=== PATIENT | female | born 1935 | race Caucasian/White ===

== ENCOUNTER 2019-02-11 19:01 | Inpatient (IN) | payer MEDICARE, OTHER ==
[~2019-02-11] VITALS: Ht 170.2 cm; Wt 60.0 kg
[~2019-02-11 19:01] MED LIST: AMIT50TA3 PO; AMOX1TAB10 PO; CYCL5TAB PO; ERGO500014 PO; ESOM40CA PO; HYDR28CR43 TOP; LACHYD12 TOP; LANS30CA PO; METF-480 PO; METO25TA4 PO; OMEG1CAP PO; QUET25TA33 PO; ROPI1TAB PO; SENN25TA PO; SERT50TA6 PO; SIN50200 PO; SOLI10TA2 PO
--- NOTE | 2019-02-11 19:50 | STROKE ---
Date/Time of Note Date/Time of Note DATE: 02/11/19 TIME: 19:49 Patient Information General Patient location: emergency Arrival Date Age 83 Gender female Weight 60 kg POC Glucose Glucose Result Bedside Glucose - 72 Hours Test 02/11/19 19:18 Bedside Glucose 114 mg/dL (70-220) Vital Signs Vital Signs Vital Signs Date Temp Pulse Resp B/P (MAP) Pulse Ox O2 O2 Flow FiO2 Time Delivery Rate 02/11/19 Nasal 19:13 Cannula 02/11/19 98.9 93 19 92/54 (67) 100 19:05 Patient History Current Medications Allergies: Coded Allergies: No Known Allergies (Unverified Allergy, Unknown, 04/28/16) History & Physical History of Present Illness 83 F PMH TIA one week ago, baseline mRS 4, PD on Sinemet LKW 1000 PST who stopped talking today. No focal extremity weakness. NCHCT done and read pending. NIH Stroke Scale NIH Stroke Scale [id number] Total Score: [id number] te/Time Recorded DATE: 02/11/19 TIME: 19:49 Submitted By Colin Felix t-PA Imaging Review Date/Time Imaging Reviewed DATE: 02/11/19 TIME: 19:49 t-PA Administration Recommendation: No Weight 60 kg Recommedation submitted by Colin Felix Reason t-PA not Recommended Not in time window Recommendations Recommendation 83 F who "stopped talking" earlier today. concerning for aphasia caused by stroke. Not in tPA window. Not MT candidate due to baseline mRS of 4. Patient has missed many doses of her Sinemet over the last few days. DDX includes aphasia from stroke vs freezing/decompensation from PD in setting of missed doses of Sinemet over last 3 days. - MRI Brain to further rule-out stroke. Frequent neuro checks per protocol with telemetry while MRI Brain pending - If acute stroke on MRI Brain then needs full stroke work-up ( MRA Head/Neck, TTE with bubble, blood cultures, telemetry, EKG, LDL, A1c, SP, PT, OT) and antiplatelet loading as guided by local Neurologist - Strictly administer home Sinemet after passes bedside swallow testing - Consult local Neurology to guide further recs I, Dr Colin Felix, was consulted by the local team caring for this patient to perform an expert, remote TeleNeurology assessment as a workforce consultant only. Accuracy of the Electronic Medical Record info reported to me verbally by the local clinical team, adherence to and execution of my recommendations, order placement, follow-up of STAT imaging reports with on-call local Radiologist, and [facility] on-call if clinical deterioration of the patient is the responsibility of the local team. The local physician team is responsible for the further care of this patient in co ordination with their on-call local Neurologist. Recommendations documented here were directly communicated to the local physician team. COLIN FELIX MD Feb 11, 2019 19:50
[2019-02-11] MEDS ORDERED: NACL 0.9% 3 ML SYG IV SCH (22:30)
[2019-02-11] MEDS ORDERED: ONDANSETRON 4 MG INJ IV PRN (22:30)
[2019-02-11] MEDS ORDERED: ALBUTEROL/IPRATROPIUM (NEB) 3 ML AMP HHN PRN (22:30)
[2019-02-11] MEDS ORDERED: ACETAMINOPHEN 650 MG SUPP PR PRN (22:30)
--- NOTE | 2019-02-11 22:54 | ERD ---
ER Documentation Chief Complaint Chief Complaint bib ra from home for unable to speak HPI The patient is a 83-year-old female, presenting to the ER because she has not been able to speak since 10 AM this morning. She had a TIA and was DC from [place] about 9 days ago. She has been able to ambulate with assistance until this morning when her grandson noted that she is different and unable to speak. She follows simple commands, is unable to provide a history. The history is obtained from the son According to him she is less responsive than normal. She has not been taking her Parkinson disease for the last couple days Past medical history: History of CVA, history of TIA, Parkinson disease, diabetes mellitus, hypertension, dyslipidemia, dementia ROS All systems reviewed and are negative except as per history of present illness. Medications Home Meds Reported Medications Hydrocortisone (Neosporin) 1% - 28 Gm Cream..g., 1 APPLIC TOP DAILY, #1 TUB 04/28/16 Amoxicillin/Potassium Clav (Amox-Clav 875-125 mg Tablet) 875-125 mg Tab, 1 TAB PO BID, #20 TAB 04/28/16 Ammonium Lactate* (Lac-Hydrin* 12% (225gm)) 1 Applic Lotion, 1 APPLIC TOP DAILY, BOTTLE 04/28/16 Cyclobenzaprine Hcl* (Cyclobenzaprine Hcl*) 5 Mg Tablet, 5 MG PO DAILY, #60 TAB 04/28/16 Ropinirole Hcl* (Ropinirole Hcl*) 1 Mg Tablet, 1 MG PO BID, TAB 04/28/16 Metoprolol Tartrate* (Lopressor*) 25 Mg Tablet, 25 MG PO DAILY, #60 TAB 04/28/16 Amitriptyline Hcl* (Amitriptyline Hcl*) 50 Mg Tablet, 50 MG PO QHS, #30 TAB 04/28/16 Solifenacin* (Vesicare*) 10 Mg Tablet, 10 MG PO DAILY, TAB 04/28/16 Esomeprazole Mag Trihydrate (Nexium) 40 Mg Capsule.dr, 40 MG PO DAILY, #30 CAP 04/28/16 Ergocalciferol* (Drisdol* (Vitamin D2)) 50,000 Unit Capsule, 43365 UNIT PO Q7D, CAP 04/28/16 Sennosides (Laxative) 25 Mg Tablet, 25 MG PO DAILY, TAB 10/13/16 [place]-3 Fatty Acids/Fish Oil (OMEGA-3 1,000 MG SOFTGEL) 1 Each Capsule, 1 EACH PO DAILY, CAP 04/28/16 Carbidopa-Levodopa* (Sinemet CR*) 50-200 Mg Tabsr, 1 TAB PO QID, #6 TAB 09/12/14 Metformin* (Glucophage*) 850 Mg Tablet, 850 MG PO BID WITH MEALS, TAB 09/10/14 Allergies Allergies: Coded Allergies: No Known Allergies (Unverified Allergy, Unknown, 04/28/16) PMhx/Soc History of Surgery: No Anesthesia Reaction: No Hx 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 Disorder: Yes (Parkinson's) Hx Respiratory Disorders: No Hx Cardiac Disorders: Yes (HTN) Hx Psychiatric Problems: No Hx Miscellaneous Medical Probl: Yes (HTN, DM, PD, chronic anemia, GALL STONES) Hx Alcohol Use: No Hx Substance Use: No Hx Tobacco Use: No Smoking Status: Never smoker Physical Exam Vitals Vital Signs Date Temp Pulse Resp B/P (MAP) Pulse Ox O2 O2 Flow FiO2 Time Delivery Rate 02/11/19 82 18 121/79 99 Room Air 21:00 (93) 02/11/19 78 16 110/62 98 Room Air 19:49 (78) 02/11/19 Nasal 19:13 Cannula 02/11/19 98.9 93 19 92/54 (67) 100 19:05 Physical Exam Const: No acute distress. Head: Atraumatic. Eyes: Normal Conjunctiva. ENT: Normal External Ears, Nose and Mouth. Neck: Full range of motion. No meningismus. Resp: Clear to auscultation bilaterally. Cardio: Regular rate and rhythm. Abd: Soft, non distended, normal bowel sounds, non tender. Skin: No petechiae or rashes. Back: No midline or flank tenderness. Ext: No cyanosis, or edema. Neur: Awake and alert. she follows simple commands, equal bilateral hand social media senior associate bilaterally, unable to elevate legs against gravity Psych: Limited due to her condition Result Diagram: 02/11/19192002/11/191920 Results 24 hrs Laboratory Tests Test 02/11/19 19:18 02/11/19 19:21 Bedside Glucose 114 mg/dL White Blood Count 5.9 10^3/ul Red Blood Count 3.95 10^6/ul Hemoglobin 12.0 g/dl Hematocrit 36.6 % Mean Corpuscular Volume 92.7 fl Mean Corpuscular Hemoglobin 30.4 pg Mean Corpuscular Hemoglobin Concent 32.8 g/dl Red Cell Distribution Width 12.6 % Platelet Count 211 10^3/UL Mean Platelet Volume 9.4 fl Immature Granulocytes % 0.500 % Neutrophils % 65.7 % Lymphocytes % 23.0 % Monocytes % 8.5 % Eosinophils % 2.0 % Basophils % 0.3 % Nucleated Red Blood Cells % 0.0 /100WBC Immature Granulocytes # 0.030 10^3/ul Neutrophils # 3.9 10^3/ul Lymphocytes # 1.4 10^3/ul Monocytes # 0.5 10^3/ul Eosinophils # 0.1 10^3/ul Basophils # 0.0 10^3/ul Nucleated Red Blood Cells # 0.0 10^3/ul Prothrombin Time 12.7 Sec Prothrombin Time Ratio 1.0 INR International Normalized Ratio 0.94 Activated Partial Thromboplast Time 28.8 Sec Sodium Level 142 mmol/L Potassium Level 4.5 mmol/L Chloride Level 108 mmol/L Carbon Dioxide Level 24 mmol/L Anion Gap 10 Blood Urea Nitrogen 23 mg/dl Creatinine 0.68 mg/dl Est Glomerular Filtrat Rate mL/min mL/min Glucose Level 110 mg/dl Hemoglobin A1c 5.4 % Calcium Level 9.2 mg/dl Creatine Kinase 26 IU/L Creatine Kinase Index 1.5 Creatinine Kinase MB (Mass) 0.38 ng/ml Troponin I < 0.012 ng/ml Triglycerides Level 195 mg/dl Cholesterol Level 154 mg/dl LDL Cholesterol, Calculated 81 mg/dl HDL Cholesterol 34 mg/dl Cholesterol/HDL Ratio 4.5 RATIO Ethyl Alcohol Level < 10.0 mg/dl Current Medications Medications Dose Sig/Elis Start Time Status Last (Trade) Ordered Route PRN Stop Time Admin Dose Reason Admin 1,000 ml @ Q10H IV 02/11/19 Dextrose/Sodi 100 mls/hr 22:14 um Chloride IV Flush 3 ml PER 02/11/19 (NS 3 ml) PROTOCOL IV 22:30 Ondansetron 4 mg Q6H PRN 02/11/19 HCl (Zofran IV 22:30 Inj) NAUSEA/VOMITI NG Aspirin 81 mg DAILY PO 02/12/19 (Aspirin) 09:00 650 mg Q6H PRN 02/11/19 Acetaminophen IN .PAIN 1-3 22:30 (Tylenol OR TEMP Supp) Enoxaparin 40 mg DAILY SC 02/12/19 Sodium 09:00 (Lovenox) Albuterol/ 3 ml Q2H RESP 02/11/19 Ipratropium THERAPY PRN 22:30 (Duoneb) HHN SHORTNESS OF BREATH Discontinue ONCE ONCE 02/11/19 DC Miscellaneous current oral XX 22:30 sulfonylur... 02/11/19 22:31 Information (* Miscellaneous Pharmacy Order) Diagnostic 1 ea 02 XX 02/12/19 Test (Pha) 02:00 (Accu-Chek) ONCE ONCE 02/11/19 DC Miscellaneous HYPOGLYCEMIA XX 22:30 PROTOCOL 02/11/19 22:31 Information w... (* Miscellaneous Pharmacy Order) Insulin NOVOLOG Q4 SC 02/12/19 Aspart *MILD* 01:00 (Novolog ALGORI... Insulin Pen) Discontinue ONCE ONCE 02/11/19 DC Miscellaneous all previ... XX 22:30 02/11/19 22:31 Information (* Miscellaneous Pharmacy Order) Procedures/[place] [address] Radiology Main Line: [phone] DIAGNOSTIC IMAGING REPORT Patient: JORDAN PALENCIA : 1935 Age: 83 Sex: F MR #: [id number] DOS: 02/11/19 190 Ordering MD: ANDREW VAZQUEZ MD Location: E/R Room/Bed: PROCEDURE: CT BRAIN WITHOUT CONTRAST CLINICAL INDICATION: 83-year-old. Code stroke. TECHNIQUE: A CT of the brain was performed on a multi-slice CT scanner utilizing axial imaging from the skull base through the vertex without IV contra st. Multiplanar reformatted images were made. Images were reviewed on a PACS workstation. One or more the following dose reduction techniques were utilized: Automated exposure control, adjustment of mA/ or kV according to patient's size, or use of iterative reconstruction technique. DICOM images are available for review. The CTDIvol = 38.70 mGy. DLP = or 757.71 mGy.cm. COMPARISON: None FINDINGS: Cerebral and cerebellar volume loss. No mass effect or midline shift. No yuan intra-axial or extra-axial hemorrhage. No subdural collection. [place] - white matter differentiation is maintained. No hyperdense MCA or basilar artery sign. Low attenuation changes are present in the cerebral white matter and the left and right sub insular tracts. No asymmetric sulcal effacement. No significant p aranasal sinus mucosal disease. Mastoid air cells are clear. IMPRESSION: 1. Negative noncontrast CT brain for acute stroke. 2. Age-appropriate involutional change. 3. Chronic bilateral cerebral microvascular ischemic disease. RP physician office support associate requested to call report by the undersigned at 1933 hours [place] time. RPTAT: HLRS Edgar Hernandez, Physician Date Time Electronically viewed and signed by Edgar Hernandez Physician on 02/11/2019 19:34 RS/ CC: ANDREW VAZQUEZ MD [id number] [place] [address] Radiology Main Line: [phone] DIAGNOSTIC IMAGING REPORT Patient: JORDAN PALENCIA : 1935 Age: 83 Sex: F MR #: [id number] DOS: 02/11/19 1909 Ordering MD: ANDREW VAZQUEZ MD Location: E/R Room/Bed: PROCEDURE: XR Chest. CLINICAL INDICATION: Stroke. TECHNIQUE: Single frontal view. COMPARISON: None. FINDINGS: There is mild atelectasis or scarring at the lung bases. The lungs are otherwise clear. The heart size is normal. There is calcification in the aorta consistent with atherosclerosis. There is no pleural effusion. There is no pneumothorax. IMPRESSION: 1. Mild atelectasis or scarring at the lung bases. 2. Atherosclerosis. 3. Otherwise unremarkable chest radiograph. RPTAT: QQ .Marcos Scott MD, MD Date Time Electronically viewed and signed by .Marcos Scott MD, MD on 02/11/2019 20:21 .R/ CC: ANDREW VAZQUEZ MD [id number] [place] [address] Radiology Main Line: [phone] DIAGNOSTIC IMAGING REPORT Patient: JORDAN PALENCIA : 1935 Age: 83 Sex: F MR #: [id number] DOS: 02/11/19 1909 Ordering MD: ANDREW VAZQUEZ MD Location: E/R Room/Bed: PROCEDURE: CT ANGIOGRAM HEAD AND NECK CLINICAL INDICATION: 83-year-old. Code stroke. TECHNIQUE: The study was performed utilizing a multi-slice CT scanner. Pre and postcontrast high-resolution axial sections were obtained through the head and neck. Coronal and sagittal as well as maximal intensity projection reformations were obtained. 3-D images were made. NASCET criteria were utilized in measuring stenoses. ESTIMATED DOSE: One or more the following dose reduction techniques were utilized: Automated exposure control, adjustment of the mA/ or kV according to patient's size, or use of iterative reconstruction technique. DICOM images are available for review. DICOM images are available for review. The images were reviewed on a PACS workstation. The total CTDIvol = 59.22 mGy. DLP = 454.76 mGy- cm. CONTRAST: 100 cc Omnipaque 350 IV COMPARISON: CT brain 02/11/2019 FINDINGS: CTA NECK: Aortic arch and great vessels: No arch aneurysm or dissection flap. The innominate, left common carotid and left subclavian arteries have separate origins from the aortic arch. No hemodynamically significant origin stenosis. Normal right common carotid artery origin. Anterior circulation: Contrast opacifies the left and right common, internal and external carotid arteries. No hemodynamically significant stenosis at the level of the carotid bifurcations or involving the internal carotid arteries. Right internal carotid artery measures 3.7 mm. Left internal carotid artery measures 3.9 mm. A 2.7 x 3.1 x 3.8 cm hypervascular mass is present at the right carotid bifurcation, consistent with a paraganglioma. Posterior circulation: Contrast opacifies the left and right vertebral arteries, right dominant. Focal 70% stenosis origin nondominant left vertebral artery. No dissection flap identified. CTA BRAIN: Posterior circulation: Contrast opacifies the intradural vertebral arteries, right dominant. No basilar artery stenosis, intraluminal filling defect or basilar tip aneurysm. Contrast opacifies the left and right superior cerebellar and posterior cerebral arteries. Hypoplastic left P1 segment with origin left posterior cerebral artery. Anterior circulation: Contrast opacifies the distal left and right internal carotid arteries, the anterior and middle cerebral arteries, the opercular and sylvian branches arising from the left and right middle cerebral arteries. The anterior communicating artery is not visualized. Left and right posterior communicating arteries are present. No hemodynamically significant stenosis demonstrated. No intraluminal filling defect or abrupt vessel cutoff. No [place] aneurysm. IMPRESSION: 1. 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 2. Otherwise negative CT angiogram of the neck and head. RP physician office support associate requested to call report by the undersigned at 1943 hours [place] time. RPTAT: HLRS Physician Andi Date Time Electronically viewed and signed by Physician Andi on 02/11/2019 19:45 RS/ CC: ANDREW VAZQUEZ MD [id number] EKG: Read by emergency physician Rate/Rhythm: Normal Sinus Rhythm 92 beats/min QRS, ST, T-waves: No ST elevation, no T inversion, PVC, low voltage in precordial leads, nonspecific MEDICAL MAKING DECISION: Lateral T abnormality Impression: Abnormal EKG UA Pending Consultation: I discussed the patient with the stroke neurologist Dr. Henderson at 7:35pm and again at 7:50pm after he evaluated the patient. He did not recommend TPA because she is out of the window and because of her comorbidity. He did not recommend aspirin until the MRI is done and the results is available MEDICAL MAKING DECISION: The patient is a 83-year-old female, presenting with acute aphasia of unclear etiology The differential diagnoses considered include but are not limited to Parkinson disease exacerbation, CVA, metabolic encephalopathy, septic encephalopathy,, worsening dementia, delirium Departure Diagnosis: Primary Impression: Aphasia Condition: Serious Comments I discussed the findings with the patient. I notified the patient with Dr. Arredondo at 9:30 PM via [place], who was made aware of the lab, the treatment, the patient condition and the stroke neurologist recommendation. The patient is admitted to [facility] Disclaimer: Inadvertent spelling and grammatical errors are likely due to EHR/dictation software use and do not reflect on the overall quality of patient care. Also, please note that the electronic time recorded on this note does not necessarily reflect the actual time of the patient encounter. ANDREW VAZQUEZ MD Feb 11, 2019 22:54
[2019-02-11 23:10] VITALS: BP 144/77; PULSE 94; RESP 20
[2019-02-11 23:39] VITALS: Ht 170.2 cm; Wt 60.0 kg
[2019-02-11] MEDS: DEXTROSE 5%-0.45% NACL 1,000 ML IV SCH (23:39)
[2019-02-12] MEDS: INSULIN ASPART [NOVOLOG] 3 ML PEN SC SCH ×4 (01:48→13:02)
[2019-02-12] MEDS ORDERED: ACCU-CHEK XX SCH (02:00)
[2019-02-12 03:56] VITALS: BP 119/64; PULSE 75; RESP 17
--- NOTE | 2019-02-12 07:27 | HP ---
Date/Time of Note Date/Time of Note DATE: 02/12/19 TIME: 07:18 Assessment/Plan VTE Prophylaxis Pharmacological prophylaxis: heparin Lines/Catheters IV Catheter Type (from Nrs): Peripheral IV Urinary Cath still in place: No Assessment/Plan Assessment/Plan 1. Aphasia: CVA vs according to tele-neurologist secondary to missed Sinemet. -Head CT without acute findings -Follow-up MRI of the brain -2D echo -CT or MR angiography of the head -Swallow and PT evaluation -Resume Sinemet after swallow eval -We will start aspirin 2. Parkinson's disease and dementia -Resume sign meds after swallow evaluation -Supportive care 3. Hypertension: BP within acceptable range 4. Diabetes: Insulin while in-house Result Diagram: 02/12/1961802/12/19618 Results 24hrs Laboratory Tests Test 02/11/19 19:18 02/11/19 19:21 02/12/19 01:40 02/12/19 04:17 Bedside Glucose 114 167 140 White Blood Count 5.9 Red Blood Count 3.95 L Hemoglobin 12.0 Hematocrit 36.6 L Mean Corpuscular 92.7 Volume Mean Corpuscular 30.4 Hemoglobin Mean Corpuscular 32.8 Hemoglobin Concent Red Cell 12.6 Distribution Width Platelet Count 211 Mean Platelet Volume 9.4 # Immature 0.500 H Granulocytes % Neutrophils % 65.7 Lymphocytes % 23.0 Monocytes % 8.5 Eosinophils % 2.0 Basophils % 0.3 Nucleated Red Blood 0.0 Cells % Immature 0.030 Granulocytes # Neutrophils # 3.9 Lymphocytes # 1.4 Monocytes # 0.5 Eosinophils # 0.1 Basophils # 0.0 Nucleated Red Blood 0.0 Cells # Prothrombin Time 12.7 Prothrombin Time 1.0 Ratio INR International 0.94 Normalized Ratio Activated 28.8 Partial Thromboplast Time Sodium Level 142 Potassium Level 4.5 Chloride Level 108 Carbon Dioxide Level 24 Anion Gap 10 Blood Urea Nitrogen 23 H Creatinine 0.68 Est Glomerular Filtrat Rate mL/min Glucose Level 110 Hemoglobin A1c 5.4 Calcium Level 9.2 Creatine Kinase 26 Creatine Kinase 1.5 Index Creatinine Kinase MB 0.38 (Mass) Troponin I < 0.012 Triglycerides Level 195 H Cholesterol Level 154 LDL Cholesterol, 81 Calculated HDL Cholesterol 34 Cholesterol/HDL 4.5 Ratio Ethyl Alcohol Level < 10.0 H Test 02/12/19 06:00 02/12/19 06:19 Urine Color YELLOW Urine Clarity CLEAR Urine pH 6.0 Urine Specific 1.011 [place] Urine Ketones NEGATIVE Urine Nitrite NEGATIVE Urine Bilirubin NEGATIVE Urine Urobilinogen NEGATIVE Urine Leukocyte NEGATIVE Esterase Urine Hemoglobin NEGATIVE Urine Glucose NEGATIVE Urine Total Protein NEGATIVE White Blood Count 5.3 Red Blood Count 3.72 L Hemoglobin 11.2 L Hematocrit 34.1 L Mean Corpuscular 91.7 Volume Mean Corpuscular 30.1 Hemoglobin Mean Corpuscular 32.8 Hemoglobin Concent Red Cell 12.4 Distribution Width Platelet Count 202 Mean Platelet Volume 9.4 Immature 0.800 H Granulocytes % Neutrophils % 60.4 Lymphocytes % 26.3 Monocytes % 9.8 Eosinophils % 2.3 Basophils % 0.4 Nucleated Red Blood 0.0 Cells % Immature 0.040 H Granulocytes # Neutrophils # 3.2 Lymphocytes # 1.4 Monocytes # 0.5 Eosinophils # 0.1 Basophils # 0.0 Nucleated Red Blood 0.0 Cells # Sodium Level 140 Potassium Level 4.3 Chloride Level 106 Carbon Dioxide Level 27 Anion Gap 7 Blood Urea Nitrogen 19 Creatinine 0.68 Est Glomerular Filtrat Rate mL/min Glucose Level 145 Calcium Level 9.0 Magnesium Level 1.5 L Total Bilirubin 0.4 Direct Bilirubin 0.00 Indirect Bilirubin 0.4 Aspartate Amino 19 Transf (AST/SGOT) Alanine 19 Aminotransferase (AL T/SGPT) Alkaline Phosphatase 58 Total Protein 6.7 Albumin 3.4 Globulin 3.30 H Albumin/Globulin 1.03 Ratio Triglycerides Level 119 Cholesterol Level 144 LDL Cholesterol, 86 Calculated HDL Cholesterol 34 Cholesterol/HDL 4.2 Ratio Thyroid Stimulating Pending Hormone (TSH) HPI/ROS Admit Date/Time Admit Date/Time Feb 11, 2019 at 21:32 Hx of Present Illness Patient is an 83-year-old female with a history of hypertension, dyslipidemia, diabetes, CVA, Parkinson's disease, Parkinson's disease who was brought to the ER for aphasia since 10 AM. Patient is not able to provide any history and as such information is gathered from chart review and from the ER physician. On [id number], she attempted to say a few words. I also noticed tremor in her left upper extremity. Reportedly, patient was seen at [facility] about 10 days ago for a TIA. Son noticed a aphasia this morning. It seems like patient has not been taking her signing meds for about 4 days according to the tele-neurologist. When presented to the ER, blood pressure was 92/54. Head CT without acute findings. 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 Patient was seen by the telemetry neurologist who felt that her symptom could be from missed Sinemet. PMH/Family/Social Past Medical History Past Surgical Hx: other (see hpi) Family History Significant Family History: no pertinent family hx Social History Alcohol Use: other Smoking Status: Unknown if ever smoked Drug Use: other Exam Exam Constitutional: no acute distress Head: normocephalic, atraumatic Eyes: EOMI, PERRL Respiratory: clear to auscultation, normal air movement Cardiovascular: no skipped beat Gastrointestinal: soft, non-tender Extremities: palpable pulse Medications Current Medications Dextrose/Sodium Chloride 1,000 ml @ 100 mls/hr Q10H IV Last administered on 02/11/19at 23:39; Admin Dose 100 MLS/HR; Start 02/11/19 at 22:14 IV Flush (NS 3 ml) 3 ml PER PROTOCOL IV ; Start 02/11/19 at 22:30 Ondansetron HCl (Zofran Inj) 4 mg Q6H PRN IV NAUSEA/VOMITING; Start 02/11/19 at 22:30 Aspirin (Aspirin) 81 mg DAILY PO ; Start 02/12/19 at 09:00 Acetaminophen (Tylenol Supp) 650 mg Q6H PRN [place] .PAIN 1-3 OR TEMP; Start 02/11/19 at 22:30 Enoxaparin Sodium (Lovenox) 40 mg DAILY SC ; Start 02/12/19 at 09:00 Albuterol/ Ipratropium (Duoneb) 3 ml Q2H RESP THERAPY PRN HHN SHORTNESS OF BREATH; Start 02/11/19 at 22:30 Diagnostic Test (Pha) (Accu-Chek) 1 ea 02 XX ; Start 02/12/19 at 02:00 Insulin Aspart (Novolog Insulin Pen) NOVOLOG *MILD* ALGORI... Q4 SC Last administered on 02/12/19at 01:48; Admin Dose 1 UNIT; Start 02/12/19 at 01:00 Coded Allergies: No Known Allergies (Unverified Allergy, Unknown, 04/28/16) Social History Smoking Status: Never smoker Exam/Review of Systems Vital Signs Vitals Vital Signs Date Temp Pulse Resp B/P (MAP) Pulse Ox O2 O2 Flow FiO2 Time Delivery Rate 02/12/19 97.7 75 17 119/64 95 Room Air 03:56 (82) Intake and Output 02/11/19 02/11/19 02/12/19 1515:00 23:00 07:00 IntakeIntake Total 600 ml BalanceBalance 600 ml JODY MARQUEZ MD Feb 12, 2019 07:27
[2019-02-12 07:43] VITALS: BP 116/64; PULSE 79; RESP 20
[2019-02-12] MEDS: DEXTROSE 5%-0.45% NACL 1,000 ML IV SCH (08:41)
[2019-02-12] MEDS: ENOXAPARIN 40 MG/0.4 ML SYG SC SCH (08:46)
--- NOTE | 2019-02-12 11:31 | RADRPT ---
Echocardiogram Report Patient Name: Rico PALENCIAnt ID: [id number] : 1935 (83y 11m)Study Date: 02/12/2019 9:13:54 AM Gender: FAccession #: [id number] Tech: Ash Shi [facility] Location: [address] Ref.Physician: JOYD MARQUEZ Height(Cm): BSA: Weight(Kg): Quality: AdequateOrder Physician: JODY MARQUEZ Account #: Procedures: Echocardiographic Report: Transthoracic echocardiogram with complete 2D, M-Mode, and doppler examination. Indications: Transient Ischemic Attack. Measurements: 2D/M Mode Doppler Measurement Value Normal Range Measurement Value Normal Range LVIDd 2D 2.8 [ 3.8 - 5.2 ] cm AV Peak Kimo 1.7 [ 100.0 - 170.0 ] cm/sec LVIDs 2D 1.9 [ 2.2 - 3.5 ] cm AV Peak PG 12.0 [ 2.0 - 9.0 ] mmHg LVPWd 2D 0.8 [ 0.6 - 0.9 ] cm LVOT Peak Kimo 0.9 [ 70.0 - 110.0 ] cm/sec IVSd 2D 1.3 [ 0.6 - 0.9 ] cm LVOT Peak PG 3.0 [ 2.0 - 6.0 ] mmHg AoR Diam 2D 2.7 [ 2.3 - 3.1 ] cm MV E Peak Kimo 0.9 [ 60.0 - 130.0 ] cm/sec EDV 2D 29.6 [ 46.0 - 106.0 ] ml MV A Peak Kimo 1.1 [ 100.0 - 120.0 ] cm/sec ESV 2D 11.2 [ 14.0 - 42.0 ] ml MV E/A 0.8 [ 0.8 - 1.5 ] ratio EF 2D 62.2 [ 54.0 - 74.0 ] percent MV Decel Time 169 [ 104 - 258 ] msec LA Dimen 2D 3.5 [ 2.7 - 3.8 ] cm Lat E` Kimo 0.1 [ 10.0 - 15.0 ] cm/sec Lateral E/E` 10.9 [ 1.0 - 2.0 ] ratio Med E` Kimo 0.1 cm/sec MV E/A 0.8 [ 0.8 - 1.5 ] ratio TR Peak Kimo 2.1 [ 100.0 - 280.0 ] cm/sec TR Peak PG 18.0 mmHg RVSP 28.0 [ 10.0 - 36.0 ] mmHg Findings: Left Ventricle: Normal left ventricular systolic function. Normal left ventricular cavity size. Sigmoid septum. Ejection fraction is visually estimated at 60 %. Tissue Doppler/Mitral Doppler indices are consistent with impaired relaxation (Stage I diastolic dysfunction). Right Ventricle: Normal right ventricular size. Normal right ventricular systolic function. Left Atrium: The left atrium is normal in size. Right Atrium: The right atrium is normal in size. Mitral Valve: Mild mitral leaflet calcification. Mild mitral annular calcification. Mild mitral valve regurgitation. Aortic Valve: Mild aortic stenosis. Aortic cusps appear moderately calcified. Trace aortic valve regurgitation. Tricuspid Valve: Normal appearance of the tricuspid valve. The estimated Peak RVSP is 28 mmHg. There is mild tricuspid regurgitation. Pericardium: Normal pericardium with no significant pericardial effusion. Left pleural effusion seen. Aorta: Normal aortic root. IVC: Normal size and normal respiratory collapse consistent with normal right atrial pressure. Conclusions: Normal left ventricular systolic function. Normal left ventricular cavity size. Sigmoid septum. Ejection fraction is visually estimated at 60 %. Tissue Doppler/Mitral Doppler indices are consistent with impaired relaxation (Stage I diastolic dysfunction). The left atrium is normal in size. Mild mitral leaflet calcification. Mild mitral annular calcification. Mild mitral valve regurgitation. Mild aortic stenosis. Aortic cusps appear moderately calcified. Trace aortic valve regurgitation. Normal appearance of the tricuspid valve. The estimated Peak RVSP is 28 mmHg. There is mild tricuspid regurgitation. Electronically Signed By: Dick Simpson 2019-02-12 11:31:06 PDT
--- NOTE | 2019-02-12 12:01 | CONSI ---
Assessment/Plan Assessment/Plan Assessment/Plan (Recall) 83 F c/ reported Parkinson's disease and recent TIA/stroke...who presents for evaluation of ams (lethargy/decrease speech, etc.). The clinical picture could be consistent w/ an acute toxic-metabolic encephalopathy...as can occur with the abrupt discontinuation of Sinemet.. A focal OTOLARYNGOLOGY PHYSICIAN process is, though, not yet excluded. Head CT is unrevealing. P: MRI brain for further characterization Add b12, ammonia, Free t4 Agree w/ asa daily for secondary stroke prevention; add low dose lipitor for the same. PT/OT as necessary Other management and supportive care per primary Will follow clinically Consultation Date/Type/Reason Admit Date/Time Feb 11, 2019 at 21:32 Type of Consult Neurology Reason for Consultation aphasia Requesting Provider: KAMRON PIERRE Date/Time of Note DATE: 02/12/19 TIME: 11:52 Hx of Present Illness Patient is an 83-year-old female with a history of hypertension, dyslipidemia, diabetes, CVA, Parkinson's disease, Parkinson's disease who was brought to the ER for aphasia since 10 AM. Patient is not able to provide any history and as such information is gathered from chart review and from the ER physician. On [id number], she attempted to say a few words. I also noticed tremor in her left upper extremity. Reportedly, patient was seen at [facility] about 10 days ago for a TIA. Son noticed a aphasia this morning. It seems like patient has not been taking her signing meds for about 4 days according to the tele-neurologist. When presented to the ER, blood pressure was 92/54. Head CT without acute findings. 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 Patient was seen by the telemetry neurologist who felt that her symptom could be from missed Sinemet. per HPI Objective Exam Vitals Vital Signs Date Temp Pulse Resp B/P (MAP) Pulse Ox O2 O2 Flow FiO2 Time Delivery Rate 02/12/19 98.0 79 20 116/64 99 Room Air 07:43 (81) Intake and Output 02/11/19 02/11/19 02/12/19 1515:00 23:00 07:00 IntakeIntake Total 600 ml BalanceBalance 600 ml Exam PE: Gen Appearance: No Apparent Distress HEENT: Normocephalic Cardiovascular: Regular rate Abdomen: Soft Extremities: Dry NE: The patient was alert though sparsely verbal. Fund of knowledge was difficult to assess.. Pupils were equal and reactive to light. There was no afferent pupillary defect. Visual [place] were normal. Funduscopic examination was limited. Extra-ocular movements were full. Ptosis was absent. There was no nystagmus. Facial sensation was normal. Face was symmetric with normal strength. Hearing was intact. Palate movements were normal. Neck strength was normal. There was normal tongue bulk and speed of movement. Tone was increased. Muscle bulk was reduced. I did not see fasciculations. Arms and legs were grossly symmetric. Vibration sensation was normal. Temperature and pinprick sensation was normal. Rapid alternating movements were limited. There was no dysmetria. There was no intention tremor. Gait was deferred due to bedrest. Arm and leg reflexes were symmetric. Sheikh's sign was absent. Plantar responses were flexor. Results Result Diagram: 02/12/19 0602/12/19 0619 Results 24hrs Laboratory Tests Test 02/11/19 19:18 02/11/19 19:21 02/12/19 01:40 02/12/19 04:17 Bedside Glucose 114 167 140 White Blood Count 5.9 Red Blood Count 3.95 L Hemoglobin 12.0 Hematocrit 36.6 L Mean Corpuscular 92.7 Volume Mean Corpuscular 30.4 Hemoglobin Mean Corpuscular 32.8 Hemoglobin Concent Red Cell 12.6 Distribution Width Platelet Count 211 Mean Platelet Volume 9.4 # Immature 0.500 H Granulocytes % Neutrophils % 65.7 Lymphocytes % 23.0 Monocytes % 8.5 Eosinophils % 2.0 Basophils % 0.3 Nucleated Red Blood 0.0 Cells % Immature 0.030 Granulocytes # Neutrophils # 3.9 Lymphocytes # 1.4 Monocytes # 0.5 Eosinophils # 0.1 Basophils # 0.0 Nucleated Red Blood 0.0 Cells # Prothrombin Time 12.7 Prothrombin Time 1.0 Ratio INR International 0.94 Normalized Ratio Activated 28.8 Partial Thromboplast Time Sodium Level 142 Potassium Level 4.5 Chloride Level 108 Carbon Dioxide Level 24 Anion Gap 10 Blood Urea Nitrogen 23 H Creatinine 0.68 Est Glomerular Filtrat Rate mL/min Glucose Level 110 Hemoglobin A1c 5.4 Calcium Level 9.2 Creatine Kinase 26 Creatine Kinase 1.5 Index Creatinine Kinase MB 0.38 (Mass) Troponin I < 0.012 Triglycerides Level 195 H Cholesterol Level 154 LDL Cholesterol, 81 Calculated HDL Cholesterol 34 Cholesterol/HDL 4.5 Ratio Ethyl Alcohol Level < 10.0 H Test 02/12/19 06:00 02/12/19 06:19 02/12/19 08:59 Urine Color YELLOW Urine Clarity CLEAR Urine pH 6.0 Urine Specific 1.011 [place] Urine Ketones NEGATIVE Urine Nitrite NEGATIVE Urine Bilirubin NEGATIVE Urine Urobilinogen NEGATIVE Urine Leukocyte NEGATIVE Esterase Urine Hemoglobin NEGATIVE Urine Glucose NEGATIVE Urine Total Protein NEGATIVE Urine Opiates Screen NEGATIVE Urine Barbiturates NEGATIVE Urine Amphetamines NEGATIVE Screen Urine NEGATIVE Benzodiazepines Screen Urine Cocaine Screen NEGATIVE Urine Cannabinoids NEGATIVE White Blood Count 5.3 Red Blood Count 3.72 L Hemoglobin 11.2 L Hematocrit 34.1 L Mean Corpuscular 91.7 Volume Mean Corpuscular 30.1 Hemoglobin Mean Corpuscular 32.8 Hemoglobin Concent Red Cell 12.4 Distribution Width Platelet Count 202 Mean Platelet Volume 9.4 Immature 0.800 H Granulocytes % Neutrophils % 60.4 Lymphocytes % 26.3 Monocytes % 9.8 Eosinophils % 2.3 Basophils % 0.4 Nucleated Red Blood 0.0 Cells % Immature 0.040 H Granulocytes # Neutrophils # 3.2 Lymphocytes # 1.4 Monocytes # 0.5 Eosinophils # 0.1 Basophils # 0.0 Nucleated Red Blood 0.0 Cells # Sodium Level 140 Potassium Level 4.3 Chloride Level 106 Carbon Dioxide Level 27 Anion Gap 7 Blood Urea Nitrogen 19 Creatinine 0.68 Est Glomerular Filtrat Rate mL/min Glucose Level 145 Hemoglobin A1c 5.4 Calcium Level 9.0 Magnesium Level 1.5 L Total Bilirubin 0.4 Direct Bilirubin 0.00 Indirect Bilirubin 0.4 Aspartate Amino 19 Transf (AST/SGOT) Alanine 19 Aminotransferase (AL T/SGPT) Alkaline Phosphatase 58 Total Protein 6.7 Albumin 3.4 Globulin 3.30 H Albumin/Globulin 1.03 Ratio Triglycerides Level 119 Cholesterol Level 144 LDL Cholesterol, 86 Calculated HDL Cholesterol 34 Cholesterol/HDL 4.2 Ratio Thyroid Stimulating 6.950 H Hormone (TSH) Bedside Glucose 143 Past Medical History reviewed Home Meds Reported Medications Hydrocortisone (Neosporin) 1% - 28 Gm Cream..g., 1 APPLIC TOP DAILY, #1 TUB 04/28/16 Amoxicillin/Potassium Clav (Amox-Clav 875-125 mg Tablet) 875-125 mg Tab, 1 TAB PO BID, #20 TAB 04/28/16 Ammonium Lactate* (Lac-Hydrin* 12% (225gm)) 1 Applic Lotion, 1 APPLIC TOP DAILY, BOTTLE 04/28/16 Cyclobenzaprine Hcl* (Cyclobenzaprine Hcl*) 5 Mg Tablet, 5 MG PO DAILY, #60 TAB 04/28/16 Ropinirole Hcl* (Ropinirole Hcl*) 1 Mg Tablet, 1 MG PO BID, TAB 04/28/16 Metoprolol Tartrate* (Lopressor*) 25 Mg Tablet, 25 MG PO DAILY, #60 TAB 04/28/16 Amitriptyline Hcl* (Amitriptyline Hcl*) 50 Mg Tablet, 50 MG PO QHS, #30 TAB 04/28/16 Solifenacin* (Vesicare*) 10 Mg Tablet, 10 MG PO DAILY, TAB 04/28/16 Esomeprazole Mag Trihydrate (Nexium) 40 Mg Capsule.dr, 40 MG PO DAILY, #30 CAP 04/28/16 Ergocalciferol* (Drisdol* (Vitamin D2)) 50,000 Unit Capsule, 40191 UNIT PO Q7D, CAP 04/28/16 Sennosides (Laxative) 25 Mg Tablet, 25 MG PO DAILY, TAB 04/28/16 [place]-3 Fatty Acids/Fish Oil (OMEGA-3 1,000 MG SOFTGEL) 1 Each Capsule, 1 EACH PO DAILY, CAP 04/28/16 Carbidopa-Levodopa* (Sinemet CR*) 50-200 Mg Tabsr, 1 TAB PO QID, #6 TAB 09/12/14 Metformin* (Glucophage*) 850 Mg Tablet, 850 MG PO BID WITH MEALS, TAB 09/10/14 Medications Current Medications Dextrose/Sodium Chloride 1,000 ml @ 100 mls/hr Q10H IV Last administered on 02/12/19at 08:41; Admin Dose 100 MLS/HR; Start 02/11/19 at 22:14 IV Flush (NS 3 ml) 3 ml PER PROTOCOL IV ; Start 02/11/19 at 22:30 Ondansetron HCl (Zofran Inj) 4 mg Q6H PRN IV NAUSEA/VOMITING; Start 02/11/19 at 22:30 Aspirin (Aspirin) 81 mg DAILY PO ; Start 02/12/19 at 09:00 Acetaminophen (Tylenol Supp) 650 mg Q6H PRN [place] .PAIN 1-3 OR TEMP; Start 02/11/19 at 22:30 Enoxaparin Sodium (Lovenox) 40 mg DAILY SC Last administered on 02/12/19at 08:46; Admin Dose 40 MG; Start 02/12/19 at 09:00 Albuterol/ Ipratropium (Duoneb) 3 ml Q2H RESP THERAPY PRN HHN SHORTNESS OF BREATH; Start 02/11/19 at 22:30 Diagnostic Test (Pha) (Accu-Chek) 1 02 XX ; Start 02/12/19 at 02:00 Insulin Aspart (Novolog Insulin Pen) NOVOLOG *MILD* ALGORI... Q4 SC Last administered on 02/12/19at 09:06; Admin Dose 1 UNIT; Start 02/12/19 at 01:00 Allergies: Coded Allergies: No Known Allergies (Unverified Allergy, Unknown, 04/28/16) Social History Smoking Status: Never smoker VERA CHAKRABORTY Feb 12, 2019 12:01
[2019-02-12] MEDS ORDERED: MAGNESIUM SULFATE 2 GM/50 ML 50 ML IVPB ONE (14:30)
--- NOTE | 2019-02-12 14:41 | PN ---
Date/Time of Note Date/Time of Note DATE: 02/12/19 TIME: 14:22 Assessment/Plan VTE Prophylaxis Risk score (from Ns)>0 risk: 3 SCD applied (from Ns): Yes Pharmacological prophylaxis: LMWH Lines/Catheters IV Catheter Type (from [facility] Peripheral IV Urinary Cath still in place: No Assessment/Plan Assessment/Plan 1. Acute encephalopathy, probably dehydration related, r/o CVA, MRI ordered 2. Parkinson's disease, resume home meds 3. Dementia, stable 4. Recent TIA/stroke, on aspirin and lipitor 5. HTN,controlled 6. DM, ISS 7. 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 DVT prophylaxis: lovenox Result Diagram: 02/12/1919 02/12/1919 Results 24hrs Laboratory Tests Test 02/11/19 19:18 02/11/19 19:21 02/12/19 01:40 02/12/19 04:17 Bedside Glucose 114 167 140 White Blood Count 5.9 Red Blood Count 3.95 L Hemoglobin 12.0 Hematocrit 36.6 L Mean Corpuscular 92.7 Volume Mean Corpuscular 30.4 Hemoglobin Mean Corpuscular 32.8 Hemoglobin Concent Red Cell 12.6 Distribution Width Platelet Count 211 Mean Platelet Volume 9.4 # Immature 0.500 H Granulocytes % Neutrophils % 65.7 Lymphocytes % 23.0 Monocytes % 8.5 Eosinophils % 2.0 Basophils % 0.3 Nucleated Red Blood 0.0 Cells % Immature 0.030 Granulocytes # Neutrophils # 3.9 Lymphocytes # 1.4 Monocytes # 0.5 Eosinophils # 0.1 Basophils # 0.0 Nucleated Red Blood 0.0 Cells # Prothrombin Time 12.7 Prothrombin Time 1.0 Ratio INR International 0.94 Normalized Ratio Activated 28.8 Partial Thromboplast Time Sodium Level 142 Potassium Level 4.5 Chloride Level 108 Carbon Dioxide Level 24 Anion Gap 10 Blood Urea Nitrogen 23 H Creatinine 0.68 Est Glomerular Filtrat Rate mL/min Glucose Level 110 Hemoglobin A1c 5.4 Calcium Level 9.2 Creatine Kinase 26 Creatine Kinase 1.5 Index Creatinine Kinase MB 0.38 (Mass) Troponin I < 0.012 Triglycerides Level 195 H Cholesterol Level 154 LDL Cholesterol, 81 Calculated HDL Cholesterol 34 Cholesterol/HDL 4.5 Ratio Ethyl Alcohol Level < 10.0 H Test 02/12/19 06:00 02/12/19 06:19 02/12/19 06:20 02/12/19 08:59 Urine Color YELLOW Urine Clarity CLEAR Urine pH 6.0 Urine Specific 1.011 [place] Urine Ketones NEGATIVE Urine Nitrite NEGATIVE Urine Bilirubin NEGATIVE Urine Urobilinogen NEGATIVE Urine Leukocyte NEGATIVE Esterase Urine Hemoglobin NEGATIVE Urine Glucose NEGATIVE Urine Total Protein NEGATIVE Urine Opiates Screen NEGATIVE Urine Barbiturates NEGATIVE Urine Amphetamines NEGATIVE Screen Urine NEGATIVE Benzodiazepines Screen Urine Cocaine Screen NEGATIVE Urine Cannabinoids NEGATIVE White Blood Count 5.3 Red Blood Count 3.72 L Hemoglobin 11.2 L Hematocrit 34.1 L Mean Corpuscular 91.7 Volume Mean Corpuscular 30.1 Hemoglobin Mean Corpuscular 32.8 Hemoglobin Concent Red Cell 12.4 Distribution Width Platelet Count 202 Mean Platelet Volume 9.4 Immature 0.800 H Granulocytes % Neutrophils % 60.4 Lymphocytes % 26.3 Monocytes % 9.8 Eosinophils % 2.3 Basophils % 0.4 Nucleated Red Blood 0.0 Cells % Immature 0.040 H Granulocytes # Neutrophils # 3.2 Lymphocytes # 1.4 Monocytes # 0.5 Eosinophils # 0.1 Basophils # 0.0 Nucleated Red Blood 0.0 Cells # Sodium Level 140 Potassium Level 4.3 Chloride Level 106 Carbon Dioxide Level 27 Anion Gap 7 Blood Urea Nitrogen 19 Creatinine 0.68 Est Glomerular Filtrat Rate mL/min Glucose Level 145 Hemoglobin A1c 5.4 Calcium Level 9.0 Magnesium Level 1.5 L Total Bilirubin 0.4 Direct Bilirubin 0.00 Indirect Bilirubin 0.4 Aspartate Amino 19 Transf (AST/SGOT) Alanine 19 Aminotransferase (AL T/SGPT) Alkaline Phosphatase 58 Total Protein 6.7 Albumin 3.4 Globulin 3.30 H Albumin/Globulin 1.03 Ratio Triglycerides Level 119 Cholesterol Level 144 LDL Cholesterol, 86 Calculated HDL Cholesterol 34 Cholesterol/HDL 4.2 Ratio Thyroid Stimulating 6.950 H Hormone (TSH) Free Thyroxine 1.43 Bedside Glucose 143 Test 02/12/19 12:52 02/12/19 13:03 Bedside Glucose 193 Ammonia < 9 L Subjective 24 Hr Interval Summary Free Text/Dictation alert, answers questions via grandson, no distress Exam/Review of Systems Exam Vitals Vital Signs Date Temp Pulse Resp B/P (MAP) Pulse Ox O2 O2 Flow FiO2 Time Delivery Rate 02/12/19 98.0 79 20 116/64 99 Room Air 07:43 (81) Intake and Output 02/11/19 02/11/19 02/12/19 1515:00 23:00 07:00 IntakeIntake Total 600 ml BalanceBalance 600 ml Constitutional: alert, non-verbal Head: normocephalic, atraumatic Eyes: nl conjunctiva, EOMI, nl lids ENMT: nl external ears & nose, nl lips & teeth, nl nasal mucosa & septum Neck: supple, non-tender Respiratory: clear to auscultation, normal air movement; No congested cough, No crackles/rales, No diminished breath sounds, No intercostal retraction, No labored breathing, No respirations, No tactile fremitus, No wheezing, No other Cardiovascular: regular rate and rhythm, nl pulses; No bruits, No diastolic murmur, No edema, No gallop, No irregular rhythm, No jugular venous distention (JVD), No murmurs/extra sounds, No rub, No systolic murmur, No S3, No S4, No other Gastrointestinal: soft, nl liver, spleen, non-tender Musculoskeletal: nl extremities to inspection Extremities: normal pulses; No calf tenderness, No cyanosis, No clubbing, No edema, No pitting pedal edema, No palpable cord, No tenderness, No other 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: ESCROW PROCESSOR II-XII intact Results Results 24hrs Laboratory Tests Test 02/11/19 19:18 02/11/19 19:21 02/12/19 01:40 02/12/19 04:17 Bedside Glucose 114 167 140 White Blood Count 5.9 Red Blood Count 3.95 L Hemoglobin 12.0 Hematocrit 36.6 L Mean Corpuscular 92.7 Volume Mean Corpuscular 30.4 Hemoglobin Mean Corpuscular 32.8 Hemoglobin Concent Red Cell 12.6 Distribution Width Platelet Count 211 Mean Platelet Volume 9.4 # Immature 0.500 H Granulocytes % Neutrophils % 65.7 Lymphocytes % 23.0 Monocytes % 8.5 Eosinophils % 2.0 Basophils % 0.3 Nucleated Red Blood 0.0 Cells % Immature 0.030 Granulocytes # Neutrophils # 3.9 Lymphocytes # 1.4 Monocytes # 0.5 Eosinophils # 0.1 Basophils # 0.0 Nucleated Red Blood 0.0 Cells # Prothrombin Time 12.7 Prothrombin Time 1.0 Ratio INR International 0.94 Normalized Ratio Activated 28.8 Partial Thromboplast Time Sodium Level 142 Potassium Level 4.5 Chloride Level 108 Carbon Dioxide Level 24 Anion Gap 10 Blood Urea Nitrogen 23 H Creatinine 0.68 Est Glomerular Filtrat Rate mL/min Glucose Level 110 Hemoglobin A1c 5.4 Calcium Level 9.2 Creatine Kinase 26 Creatine Kinase 1.5 Index Creatinine Kinase MB 0.38 (Mass) Troponin I < 0.012 Triglycerides Level 195 H Cholesterol Level 154 LDL Cholesterol, 81 Calculated HDL Cholesterol 34 Cholesterol/HDL 4.5 Ratio Ethyl Alcohol Level < 10.0 H Test 02/12/19 06:00 02/12/19 06:19 02/12/19 06:20 02/12/19 08:59 Urine Color YELLOW Urine Clarity CLEAR Urine pH 6.0 Urine Specific 1.011 [place] Urine Ketones NEGATIVE Urine Nitrite NEGATIVE Urine Bilirubin NEGATIVE Urine Urobilinogen NEGATIVE Urine Leukocyte NEGATIVE Esterase Urine Hemoglobin NEGATIVE Urine Glucose NEGATIVE Urine Total Protein NEGATIVE Urine Opiates Screen NEGATIVE Urine Barbiturates NEGATIVE Urine Amphetamines NEGATIVE Screen Urine NEGATIVE Benzodiazepines Screen Urine Cocaine Screen NEGATIVE Urine Cannabinoids NEGATIVE White Blood Count 5.3 Red Blood Count 3.72 L Hemoglobin 11.2 L Hematocrit 34.1 L Mean Corpuscular 91.7 Volume Mean Corpuscular 30.1 Hemoglobin Mean Corpuscular 32.8 Hemoglobin Concent Red Cell 12.4 Distribution Width Platelet Count 202 Mean Platelet Volume 9.4 Immature 0.800 H Granulocytes % Neutrophils % 60.4 Lymphocytes % 26.3 Monocytes % 9.8 Eosinophils % 2.3 Basophils % 0.4 Nucleated Red Blood 0.0 Cells % Immature 0.040 H Granulocytes # Neutrophils # 3.2 Lymphocytes # 1.4 Monocytes # 0.5 Eosinophils # 0.1 Basophils # 0.0 Nucleated Red Blood 0.0 Cells # Sodium Level 140 Potassium Level 4.3 Chloride Level 106 Carbon Dioxide Level 27 Anion Gap 7 Blood Urea Nitrogen 19 Creatinine 0.68 Est Glomerular Filtrat Rate mL/min Glucose Level 145 Hemoglobin A1c 5.4 Calcium Level 9.0 Magnesium Level 1.5 L Total Bilirubin 0.4 Direct Bilirubin 0.00 Indirect Bilirubin 0.4 Aspartate Amino 19 Transf (AST/SGOT) Alanine 19 Aminotransferase (AL T/SGPT) Alkaline Phosphatase 58 Total Protein 6.7 Albumin 3.4 Globulin 3.30 H Albumin/Globulin 1.03 Ratio Triglycerides Level 119 Cholesterol Level 144 LDL Cholesterol, 86 Calculated HDL Cholesterol 34 Cholesterol/HDL 4.2 Ratio Thyroid Stimulating 6.950 H Hormone (TSH) Free Thyroxine 1.43 Bedside Glucose 143 Test 02/12/19 12:52 02/12/19 13:03 Bedside Glucose 193 Ammonia < 9 L Medications Medication Current Medications Dextrose/Sodium Chloride 1,000 ml @ 100 mls/hr Q10H IV Last administered on 02/12/19at 08:41; Admin Dose 100 MLS/HR; Start 02/11/19 at 22:14 IV Flush (NS 3 ml) 3 ml PER PROTOCOL IV ; Start 02/11/19 at 22:30 Ondansetron HCl (Zofran Inj) 4 mg Q6H PRN IV NAUSEA/VOMITING; Start 02/11/19 at 22:30 Aspirin (Aspirin) 81 mg DAILY PO ; Start 02/12/19 at 09:00 Acetaminophen (Tylenol Supp) 650 mg Q6H PRN [place] .PAIN 1-3 OR TEMP; Start 02/11/19 at 22:30 Enoxaparin Sodium (Lovenox) 40 mg DAILY SC Last administered on 02/12/19at 08:46; Admin Dose 40 MG; Start 02/12/19 at 09:00 Albuterol/ Ipratropium (Duoneb) 3 ml Q2H RESP THERAPY PRN HHN SHORTNESS OF BREATH; Start 02/11/19 at 22:30 Diagnostic Test (Pha) (Accu-Chek) 1 ea 02 XX ; Start 02/12/19 at 02:00 Insulin Aspart (Novolog Insulin Pen) NOVOLOG *MILD* ALGORI... Q4 SC Last administered on 02/12/19at 13:02; Admin Dose 2 UNIT; Start 02/12/19 at 01:00 Atorvastatin Calcium (Lipitor) 10 mg HS PO ; Start 02/12/19 at 21:00 KEVIN STEWARD MD Feb 12, 2019 14:37
[2019-02-12] MEDS ORDERED: GLUCOSE GEL 15 GRAM TUBE PO PRN ×2 (15:00)
[2019-02-12] MEDS ORDERED: DEXTROSE 50% 50 ML SYRINGE IV PRN ×2 (15:00)
[2019-02-12] MEDS: ERGOCALCIFEROL 50,000 UNIT CAP PO SCH (15:00)
[2019-02-12] MEDS ORDERED: GLUCOSE GEL 15 GRAM TUBE BUCCAL PRN (15:00)
[2019-02-12] MEDS ORDERED: GLUCAGON 1 MG INJ IM PRN (15:00)
[2019-02-12] MEDS: AMMONIUM LACTATE 12% 225 GM LOT TOP SCH (16:04)
[2019-02-12 16:08] VITALS: BP 146/76; PULSE 95; RESP 18
[2019-02-12] MEDS: POTASSIUM CHLORIDE 10 MEQ in SOD CHLORIDE 0.45% 1,000 ML IV SCH (16:56)
[2019-02-12] MEDS: ROPINIROLE 1 MG TAB PO SCH ×2 (16:57→20:21)
[2019-02-12] MEDS: SOLIFENACIN 5 MG TAB PO SCH (16:57)
[2019-02-12] MEDS: ASPIRIN 81 MG TAB PO SCH (16:58)
[2019-02-12] MEDS: CARBIDOPA/LEVODOPA 50-200 (CR) TAB PO SCH ×2 (16:58→20:21)
[2019-02-12] MEDS: metFORMIN 850 MG TAB PO SCH (18:09)
[2019-02-12] MEDS: AMANTADINE 100 MG/10 ML POSYR PO SCH (18:09)
[2019-02-12 20:00] VITALS: BP 102/59; PULSE 77; RESP 19
[2019-02-12] MEDS: ATORVASTATIN 10 MG TAB PO SCH (20:21)
[2019-02-12] MEDS: AMITRIPTYLINE 50 MG TAB PO SCH (20:21)
[2019-02-12 23:35] VITALS: BP 99/70; PULSE 80; RESP 20
[2019-02-13] MEDS: POTASSIUM CHLORIDE 10 MEQ in SOD CHLORIDE 0.45% 1,000 ML IV SCH ×3 (00:57→15:23)
[2019-02-13 03:44] VITALS: BP 116/71; PULSE 74; RESP 18
[2019-02-13] MEDS: PANTOPRAZOLE (EC) 40 MG TAB PO SCH (05:12)
[2019-02-13 07:19] VITALS: BP 142/68; PULSE 78; RESP 22
[2019-02-13] MEDS: CYCLOBENZAPRINE 10 MG TAB PO SCH (08:20)
[2019-02-13] MEDS: metFORMIN 850 MG TAB PO SCH ×2 (08:20→17:37)
[2019-02-13] MEDS: METOPROLOL 25 MG TAB PO SCH (08:20)
[2019-02-13] MEDS: SENNA TAB PO SCH (08:21)
[2019-02-13] MEDS: SOLIFENACIN 5 MG TAB PO SCH (08:21)
[2019-02-13] MEDS: HYDROCORTISONE 1% 26 GM RECT CR TOP SCH (08:21)
[2019-02-13] MEDS: CARBIDOPA/LEVODOPA 50-200 (CR) TAB PO SCH ×4 (08:21→20:36)
[2019-02-13] MEDS: ASPIRIN 81 MG TAB PO SCH (08:21)
[2019-02-13] MEDS: ROPINIROLE 1 MG TAB PO SCH ×2 (08:21→20:36)
[2019-02-13] MEDS: AMMONIUM LACTATE 12% 225 GM LOT TOP SCH (08:22)
[2019-02-13] MEDS: ENOXAPARIN 40 MG/0.4 ML SYG SC SCH (08:58)
[2019-02-13] MEDS: AMANTADINE 100 MG/10 ML POSYR PO SCH (09:00)
[2019-02-13] MEDS: FISH OIL 1,000 MG CAP PO SCH (09:00)
[2019-02-13 11:23] VITALS: BP 105/56; PULSE 70; RESP 22
--- NOTE | 2019-02-13 12:20 | CONS ---
Assessment/Plan Assessment/Plan Assessment/Plan (Recall) 83 F c/ reported Parkinson's disease and recent TIA/stroke...who presents for evaluation of ams (lethargy/decrease speech, etc.). The clinical picture could be consistent w/ an acute toxic-metabolic encephalopathy...as can occur with the abrupt discontinuation of Sinemet.. MRI brain is reassuringly negative for acute intracranial pathology. Ammonia, Free T4, B12 ok P: Agree w/ asa daily for secondary stroke prevention; add low dose lipitor for the same Continue Sinemet, Requip per ops PT/OT as necessary Other management and supportive care per primary Will follow clinically Consultation Date/Type/Reason Admit Date/Time Feb 11, 2019 at 21:32 Type of Consult Neurology Reason for Consultation aphasia Requesting Provider: KAMRON PIERRE Date/Time of Note DATE: 02/13/19 TIME: 12:19 24 HR Interval Summary Free Text/Dictation Continues acute care Exam/Review of Systems Exam Vitals Vital Signs Date Temp Pulse Resp B/P (MAP) Pulse Ox O2 O2 Flow FiO2 Time Delivery Rate 02/13/19 98.0 70 22 105/56 96 Room Air 11:23 (72) Intake and Output 02/12/19 02/12/19 02/13/19 1515:00 23:00 07:00 IntakeIntake Total 240 ml 750 ml 1205 ml BalanceBalance 240 ml 750 ml 1205 ml Results Result Diagram: 02/13/19 0606 02/13/19 0606 Results 24hrs Laboratory Tests Test 02/12/19 12:52 02/12/19 13:03 02/13/19 06:06 Bedside Glucose 193 Ammonia < 9 L White Blood Count 4.3 L Red Blood Count 3.64 L Hemoglobin 11.1 L Hematocrit 33.8 L Mean Corpuscular Volume 92.9 Mean Corpuscular Hemoglobin 30.5 Mean Corpuscular Hemoglobin Concent 32.8 Red Cell Distribution Width 12.6 Platelet Count 199 Mean Platelet Volume 9.5 Immature Granulocytes % 1.200 H Neutrophils % 52.6 Lymphocytes % 32.8 Monocytes % 9.7 Eosinophils % 3.0 Basophils % 0.7 Nucleated Red Blood Cells % 0.0 Immature Granulocytes # 0.050 H Neutrophils # 2.3 Lymphocytes # 1.4 Monocytes # 0.4 Eosinophils # 0.1 Basophils # 0.0 Nucleated Red Blood Cells # 0.0 Sodium Level 141 Potassium Level 4.1 Chloride Level 108 Carbon Dioxide Level 25 Anion Gap 8 Blood Urea Nitrogen 12 Creatinine 0.60 Est Glomerular Filtrat Rate mL/min Glucose Level 75 # Calcium Level 8.7 Medications Medication Current Medications IV Flush (NS 3 ml) 3 ml PER PROTOCOL IV ; Start 02/11/19 at 22:30 Ondansetron HCl (Zofran Inj) 4 mg Q6H PRN IV NAUSEA/VOMITING; Start 02/11/19 at 22:30 Aspirin (Aspirin) 81 mg DAILY PO Last administered on 02/13/19 08:21; Admin Dose 81 MG; Start 02/12/19 at 09:00 Acetaminophen (Tylenol Supp) 650 mg Q6H PRN [place] .PAIN 1-3 OR TEMP; Start 02/11/19 at 22:30 Enoxaparin Sodium (Lovenox) 40 mg DAILY SC Last administered on 02/13/19at 08:58; Admin Dose 40 MG; Start 02/12/19 at 09:00 Albuterol/ Ipratropium (Duoneb) 3 ml Q2H RESP THERAPY PRN HHN SHORTNESS OF BR EATH; Start 02/11/19 at 22:30 Atorvastatin Calcium (Lipitor) 10 mg HS PO Last administered on 02/12/19 20:21; Admin Dose 10 MG; Start 02/12/19 at 21:00 Amitriptyline HCl (Elavil) 50 mg QHS PO Last administered on 02/12/19 20:21; Admin Dose 50 MG; Start 02/12/19 at 21:00 Ammonium Lactate (Lac-Hydrin 12% Lotion) 1 applic DAILY TOP Last administered on 02/13/19 08:22; Admin Dose 1 APPLIC; Start 02/12/19 at 15:00 Carbidopa/Levodopa (Sinemet Cr (50/ 200)) 1 tab QID PO Last administered on 02/13/19 08:21; Admin Dose 1 TAB; Start 02/12/19 at 17:00 Cyclobenzaprine HCl (Flexeril) 5 mg DAILY PO Last administered on 02/13/19 08:20; Admin Dose 5 MG; Start 02/13/19 at 09:00 Ergocalciferol (Drisdol) 50,000 unit Q7D PO ; Start 02/12/19 at 15:00 Hydrocortisone (Procto-Justino) 1 applic DAILY TOP Last administered on 02/13/19at 08:21; Admin Dose 1 APPLIC; Start 02/13/19 at 09:00 Metformin HCl (Glucophage) 850 mg BID WITH MEALS PO Last administered on 02/13/19at 08:20; Admin Dose 850 MG; Start 02/12/19 at 17:55 Metoprolol Tartrate (Lopressor) 25 mg DAILY PO Last administered on 02/13/19at 08:20; Admin Dose 25 MG; Start 02/13/19 at 09:00 Ropinirole HCl (Requip) 1 mg BID PO Last administered on 02/13/19at 08:21; Admin Dose 1 MG; Start 02/12/19 at 15:00 Solifenacin (Vesicare) 10 mg DAILY PO Last administered on 02/13/19at 08:21; Admin Dose 10 MG; Start 02/12/19 at 15:00 Pantoprazole (Protonix Tab) 40 mg DAILY@06 PO Last administered on 02/13/19at 05:12; Admin Dose 40 MG; Start 02/13/19 at 06:00 Fish Oil (Fish Oil) 1,000 mg DAILY PO ; Start 02/13/19 at 09:00 Senna (Senokot) 1 tab DAILY PO Last administered on 02/13/19at 08:21; Admin Dose 1 TAB; Start 02/13/19 at 09:00 Potassium Chloride 10 meq/ Sodium Chloride 1,005 ml @ 100 mls/hr Q10H3M IV Last administered on 02/13/19at 04:35; Admin Dose 100 MLS/HR; Start 02/12/19 at 15:00 Miscellaneous Information 1 ea NOTE XX ; Start 02/12/19 at 15:00 Glucose (Glutose) 15 gm Q15M PRN PO DECREASED GLUCOSE; Start 02/12/19 at 15:00 Glucose (Glutose) 22.5 gm Q15M PRN PO DECREASED GLUCOSE; Start 02/12/19 at 15:00 Dextrose (D50w Syringe) 25 ml Q15M PRN IV DECREASED GLUCOSE; Start 02/12/19 at 15:00 Dextrose (D50w Syringe) 50 ml Q15M PRN IV DECREASED GLUCOSE; Start 02/12/19 at 15:00 Glucagon (Glucagen) 1 mg Q15M PRN IM DECREASED GLUCOSE; Start 02/12/19 at 15:00 Glucose (Glutose) 15 gm Q15M PRN BUCCAL DECREASED GLUCOSE; Start 02/12/19 at 15:00 Amantadine HCl (Symmetrel) 100 mg DAILY PO Last administered on 02/13/19at 09:00; Admin Dose 100 MG; Start 02/12/19 at 17:30 VERA CHAKRABORTY Feb 13, 2019 12:20
[2019-02-13 15:17] VITALS: BP 133/60; PULSE 71; RESP 22
[2019-02-13 19:52] VITALS: BP 90/51; PULSE 75; RESP 16
[2019-02-13] MEDS: AMITRIPTYLINE 50 MG TAB PO SCH (20:36)
[2019-02-13] MEDS: ATORVASTATIN 10 MG TAB PO SCH (20:36)
[2019-02-14] VITALS (7 sets, daily range): BP systolic 92–153; BP diastolic 58–99; PULSE 60–87; RESP 16–20
[2019-02-14] MEDS: PANTOPRAZOLE (EC) 40 MG TAB PO SCH ×2 (06:00→06:10)
[2019-02-14] MEDS: POTASSIUM CHLORIDE 10 MEQ in SOD CHLORIDE 0.45% 1,000 ML IV SCH ×2 (07:12→12:58)
--- NOTE | 2019-02-14 08:43 | CONS ---
Assessment/Plan Assessment/Plan Assessment/Plan (Daily) Altered mental status History of Parkinson's disease History of dementia Chronic debility Unable to do ADLs Fluid and electrolyte abnormalities Dehydration Palliative performance scale 20% Family conference will be scheduled to address goals of care Consultation Date/Type/Reason Admit Date/Time Feb 11, 2019 at 21:32 Date/Time of Note DATE: 02/14/19 TIME: 08:40 Hx of Present Illness Patient is 83-year-old female with a history of Parkinson's disease with dementia chronic medical problems including hypertension dyslipidemia diabetes. All information space from ongoing medical records. Patient was brought to [facility] room for altered mental status head CT was without pathology and was seen by telemetry neurologist felt that patient was altered secondary to missing 4 doses of Sinemet. Patient is at extensive work-up fluid and electrolytes have been corrected them RI of the brain no definitive evidence of acute intracranial pathology moderate volume loss with mild to moderate chronic microvascular ischemic changes. Patient is extremely debilitated from my examination and what I could ascertain from medical records she is a full code. Next of kin is patient's daughter at area code [phone]. Cannot obtain Past Medical History Medical History: no pertinent history, high cholesterol Home Meds Reported Medications Hydrocortisone (Neosporin) 1% - 28 Gm Cream..g., 1 APPLIC TOP DAILY, #1 TUB 04/28/16 Amoxicillin/Potassium Clav (Amox-Clav 875-125 mg Tablet) 875-125 mg Tab, 1 TAB PO BID, #20 TAB 04/28/16 Ammonium Lactate* (Lac-Hydrin* 12% (225gm)) 1 Applic Lotion, 1 APPLIC TOP DAILY, BOTTLE 04/28/16 Cyclobenzaprine Hcl* (Cyclobenzaprine Hcl*) 5 Mg Tablet, 5 MG PO DAILY, #60 TAB 04/28/16 Ropinirole Hcl* (Ropinirole Hcl*) 1 Mg Tablet, 1 MG PO BID, TAB 04/28/16 Metoprolol Tartrate* (Lopressor*) 25 Mg Tablet, 25 MG PO DAILY, #60 TAB 04/28/16 Amitriptyline Hcl* (Amitriptyline Hcl*) 50 Mg Tablet, 50 MG PO QHS, #30 TAB 04/28/16 Solifenacin* (Vesicare*) 10 Mg Tablet, 10 MG PO DAILY, TAB 04/28/16 Esomeprazole Mag Trihydrate (Nexium) 40 Mg Capsule.dr, 40 MG PO DAILY, #30 CAP 04/28/16 Ergocalciferol* (Drisdol* (Vitamin D2)) 50,000 Unit Capsule, 79466 UNIT PO Q7D, CAP 04/28/16 Sennosides (Laxative) 25 Mg Tablet, 25 MG PO DAILY, TAB 04/28/16 Freeman-3 Fatty Acids/Fish Oil (OMEGA-3 1,000 MG SOFTGEL) 1 Each Capsule, 1 EACH PO DAILY, CAP 04/28/16 Carbidopa-Levodopa* (Sinemet CR*) 50-200 Mg Tabsr, 1 TAB PO QID, #6 TAB 09/12/14 Metformin* (Glucophage*) 850 Mg Tablet, 850 MG PO BID WITH MEALS, TAB 09/10/14 Medications Current Medications IV Flush (NS 3 ml) 3 ml PER PROTOCOL IV ; Start 02/11/19 at 22:30 Ondansetron HCl (Zofran Inj) 4 mg Q6H PRN IV NAUSEA/VOMITING; Start 02/11/19 at 22:30 Aspirin (Aspirin) 81 mg DAILY PO Last administered on 02/13/19 08:21; Admin Dose 81 MG; Start 02/12/19 at 09:00 Acetaminophen (Tylenol Supp) 650 mg Q6H PRN [place] .PAIN 1-3 OR TEMP; Start 02/11/19 at 22:30 Enoxaparin Sodium (Lovenox) 40 mg DAILY SC Last administered on 02/13/19at 08:58; Admin Dose 40 MG; Start 02/12/19 at 09:00 Albuterol/ Ipratropium (Duoneb) 3 ml Q2H RESP THERAPY PRN HHN SHORTNESS OF BREATH; Start 02/11/19 at 22:30 Atorvastatin Calcium (Lipitor) 10 mg HS PO Last administered on 02/13/19 20:36; Admin Dose 10 MG; Start 02/12/19 at 21:00 Amitriptyline HCl (Elavil) 50 mg QHS PO Last administered on 02/13/19 20:36; Admin Dose 50 MG; Start 02/12/19 at 21:00 Ammonium Lactate (Lac-Hydrin 12% Lotion) 1 applic DAILY TOP Last administered on 02/13/19 08:22; Admin Dose 1 APPLIC; Start 02/12/19 at 15:00 Carbidopa/Levodopa (Sinemet Cr (50/ 200)) 1 tab QID PO Last administered on 02/13/19 20:36; Admin Dose 1 TAB; Start 02/12/19 at 17:00 Cyclobenzaprine HCl (Flexeril) 5 mg DAILY PO Last administered on 02/13/19 08:20; Admin Dose 5 MG; Start 02/13/19 at 09:00 Ergocalciferol (Drisdol) 50,000 unit Q7D PO ; Start 02/12/19 at 15:00 Hydrocortisone (Procto-Justino) 1 applic DAILY TOP Last administered on 02/13/19 08:21; Admin Dose 1 APPLIC; Start 02/13/19 at 09:00 Metformin HCl (Glucophage) 850 mg BID WITH MEALS PO Last administered on 02/13/19 17:37; Admin Dose 850 MG; Start 02/12/19 at 17:55 Metoprolol Tartrate (Lopressor) 25 mg DAILY PO Last administered on 02/13/19 08:20; Admin Dose 25 MG; Start 02/13/19 at 09:00 Ropinirole HCl (Requip) 1 mg BID PO Last administered on 02/13/19 20:36; Admin Dose 1 MG; Start 02/12/19 at 15:00 Solifenacin (Vesicare) 10 mg DAILY PO Last administered on 02/13/19 08:21; Admin Dose 10 MG; Start 02/12/19 at 15:00 Pantoprazole (Protonix Tab) 40 mg DAILY@06 PO Last administered on 02/13/19 05:12; Admin Dose 40 MG; Start 02/13/19 at 06:00 Fish Oil (Fish Oil) 1,000 mg DAILY PO ; Start 02/13/19 at 09:00 Senna (Senokot) 1 tab DAILY PO Last administered on 02/13/19 08:21; Admin Dose 1 TAB; Start 02/13/19 at 09:00 Potassium Chloride 10 meq/ Sodium Chloride 1,005 ml @ 100 mls/hr Q10H3M IV Last administered on 02/13/19 15:23; Admin Dose 100 MLS/HR; Start 02/12/19 at 15:00 Miscellaneous Information 1 ea NOTE XX ; Start 02/12/19 at 15:00 Glucose (Glutose) 15 gm Q15M PRN PO DECREASED GLUCOSE; Start 02/12/19 at 15:00 Glucose (Glutose) 22.5 gm Q15M PRN PO DECREASED GLUCOSE; Start 02/12/19 at 15:00 Dextrose (D50w Syringe) 25 ml Q15M PRN IV DECREASED GLUCOSE; Start 02/12/19 at 15:00 Dextrose (D50w Syringe) 50 ml Q15M PRN IV DECREASED GLUCOSE; Start 02/12/19 at 15:00 Glucagon (Glucagen) 1 mg Q15M PRN IM DECREASED GLUCOSE; Start 02/12/19 at 15:00 Glucose (Glutose) 15 gm Q15M PRN BUCCAL DECREASED GLUCOSE; Start 02/12/19 at 15:00 Amantadine HCl (Symmetrel) 100 mg DAILY PO Last administered on 02/13/19at 09:00; Admin Dose 100 MG; Start 02/12/19 at 17:30 Allergies: Coded Allergies: No Known Allergies (Unverified Allergy, Unknown, 04/28/16) Social History Smoking Status: Never smoker Exam/Review of Systems Exam Vitals Vital Signs Date Temp Pulse Resp B/P (MAP) Pulse Ox O2 O2 Flow FiO2 Time Delivery Rate 02/14/19 97.8 87 18 153/78 97 07:25 (103) 02/13/19 Room Air 15:17 Intake and Output 02/13/19 02/13/19 02/14/19 1515:00 23:00 07:00 IntakeIntake Total 250 ml 350 ml 420 ml BalanceBalance 250 ml 350 ml 420 ml Constitutional: non-verbal, frail Head: normocephalic, atraumatic; No lacerations, No hematomas, No other Eyes: nl conjunctiva, EOMI, nl lids, nl sclera, PERRL; No icteric, No fundi, disc, No other Respiratory: clear to auscultation, normal air movement; No congested cough, No crackles/rales, No diminished breath sounds, No intercostal retraction, No labored breathing, No respirations, No tactile fremitus, No wheezing, No other Cardiovascular: regular rate and rhythm, nl pulses; No bruits, No diastolic murmur, No edema, No gallop, No irregular rhythm, No jugular venous distention (JVD), No murmurs/extra sounds, No rub, No systolic murmur, No S3, No S4, No other Gastrointestinal: soft, nl liver, spleen, non-tender; No ascites, No bowel sounds, No distended, No firm, No hepatomegaly, No mass, No rebound or guarding, No splenomegaly, No surgical scars, No tender, No other 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: other (Nonverbal) Results Result Diagram: 02/13/1960502/13/19605 Medications Medication Current Medications IV Flush (NS 3 ml) 3 ml PER PROTOCOL IV ; Start 02/11/19 at 22:30 Ondansetron HCl (Zofran Inj) 4 mg Q6H PRN IV NAUSEA/VOMITING; Start 02/11/19 at 22:30 Aspirin (Aspirin) 81 mg DAILY PO Last administered on 02/13/19at 08:21; Admin Dose 81 MG; Start 02/12/19 at 09:00 Acetaminophen (Tylenol Supp) 650 mg Q6H PRN [place] .PAIN 1-3 OR TEMP; Start 02/11/19 at 22:30 Enoxaparin Sodium (Lovenox) 40 mg DAILY SC Last administered on 02/13/19at 08:58; Admin Dose 40 MG; Start 02/12/19 at 09:00 Albuterol/ Ipratropium (Duoneb) 3 ml Q2H RESP THERAPY PRN HHN SHORTNESS OF BREATH; Start 02/11/19 at 22:30 Atorvastatin Calcium (Lipitor) 10 mg HS PO Last administered on 02/13/19at 20:36; Admin Dose 10 MG; Start 02/12/19 at 21:00 Amitriptyline HCl (Elavil) 50 mg QHS PO Last administered on 02/13/19 20:36; Admin Dose 50 MG; Start 02/12/19 at 21:00 Ammonium Lactate (Lac-Hydrin 12% Lotion) 1 applic DAILY TOP Last administered on 02/13/19 08:22; Admin Dose 1 APPLIC; Start 02/12/19 at 15:00 Carbidopa/Levodopa (Sinemet Cr (50/ 200)) 1 tab QID PO Last administered on 02/13/19 20:36; Admin Dose 1 TAB; Start 02/12/19 at 17:00 Cyclobenzaprine HCl (Flexeril) 5 mg DAILY PO Last administered on 02/13/19 08:20; Admin Dose 5 MG; Start 02/13/19 at 09:00 Ergocalciferol (Drisdol) 50,000 unit Q7D PO ; Start 02/12/19 at 15:00 Hydrocortisone (Procto-Justino) 1 applic DAILY TOP Last administered on 02/13/19at 08:21; Admin Dose 1 APPLIC; Start 02/13/19 at 09:00 Metformin HCl (Glucophage) 850 mg BID WITH MEALS PO Last administered on 02/13/19at 17:37; Admin Dose 850 MG; Start 02/12/19 at 17:55 Metoprolol Tartrate (Lopressor) 25 mg DAILY PO Last administered on 02/13/19at 08:20; Admin Dose 25 MG; Start 02/13/19 at 09:00 Ropinirole HCl (Requip) 1 mg BID PO Last administered on 02/13/19at 20:36; Admin Dose 1 MG; Start 02/12/19 at 15:00 Solifenacin (Vesicare) 10 mg DAILY PO Last administered on 02/13/19at 08:21; Admin Dose 10 MG; Start 02/12/19 at 15:00 Pantoprazole (Protonix Tab) 40 mg DAILY@06 PO Last administered on 02/13/19at 05:12; Admin Dose 40 MG; Start 02/13/19 at 06:00 Fish Oil (Fish Oil) 1,000 mg DAILY PO ; Start 02/13/19 at 09:00 Senna (Senokot) 1 tab DAILY PO Last administered on 02/13/19at 08:21; Admin Dose 1 TAB; Start 02/13/19 at 09:00 Potassium Chloride 10 meq/ Sodium Chloride 1,005 ml @ 100 mls/hr Q10H3M IV Last administered on 02/13/19at 15:23; Admin Dose 100 MLS/HR; Start 02/12/19 at 15:00 Miscellaneous Information 1 ea NOTE XX ; Start 02/12/19 at 15:00 Glucose (Glutose) 15 gm Q15M PRN PO DECREASED GLUCOSE; Start 02/12/19 at 15:00 Glucose (Glutose) 22.5 gm Q15M PRN PO DECREASED GLUCOSE; Start 02/12/19 at 15:00 Dextrose (D50w Syringe) 25 ml Q15M PRN IV DECREASED GLUCOSE; Start 02/12/19 at 15:00 Dextrose (D50w Syringe) 50 ml Q15M PRN IV DECREASED GLUCOSE; Start 02/12/19 at 15:00 Glucagon (Glucagen) 1 mg Q15M PRN IM DECREASED GLUCOSE; Start 02/12/19 at 15:00 Glucose (Glutose) 15 gm Q15M PRN BUCCAL DECREASED GLUCOSE; Start 02/12/19 at 15:00 Amantadine HCl (Symmetrel) 100 mg DAILY PO Last administered on 02/13/19at 09:00; Admin Dose 100 MG; Start 02/12/19 at 17:30 MERCY DAVIS Feb 14, 2019 08:43
[2019-02-14] MEDS: metFORMIN 850 MG TAB PO SCH ×2 (08:59→18:15)
[2019-02-14] MEDS: ASPIRIN 81 MG TAB PO SCH (08:59)
[2019-02-14] MEDS: SOLIFENACIN 5 MG TAB PO SCH (08:59)
[2019-02-14] MEDS: CARBIDOPA/LEVODOPA 50-200 (CR) TAB PO SCH ×4 (08:59→20:06)
[2019-02-14] MEDS: CYCLOBENZAPRINE 10 MG TAB PO SCH (08:59)
[2019-02-14] MEDS: AMANTADINE 100 MG/10 ML POSYR PO SCH (09:00)
[2019-02-14] MEDS: AMMONIUM LACTATE 12% 225 GM LOT TOP SCH (09:00)
[2019-02-14] MEDS: HYDROCORTISONE 1% 26 GM RECT CR TOP SCH (09:00)
[2019-02-14] MEDS: SENNA TAB PO SCH (09:00)
[2019-02-14] MEDS: ROPINIROLE 1 MG TAB PO SCH (09:00)
[2019-02-14] MEDS: METOPROLOL 25 MG TAB PO SCH (09:00)
[2019-02-14] MEDS: FISH OIL 1,000 MG CAP PO SCH (09:00)
[2019-02-14] MEDS: BALSAM PERU/CASTOR OIL 60 GM TUBE TOP SCH (09:01)
[2019-02-14] MEDS: ENOXAPARIN 40 MG/0.4 ML SYG SC SCH (09:13)
--- NOTE | 2019-02-14 14:24 | PN ---
Date/Time of Note Date/Time of Note DATE: 02/14/19 TIME: 14:21 Assessment/Plan VTE Prophylaxis Risk score (from Nsg)>0 risk: 7 SCD applied (from Nsg): Yes Pharmacological prophylaxis: LMWH Lines/Catheters IV Catheter Type (from Nrsg): Peripheral IV Urinary Cath still in place: No Assessment/Plan Assessment/Plan 1. Acute encephalopathy, full alert but confused and agitated, d/c flexeril, i will start small dose of morphine for possible pain related agitation 2. Parkinson's disease, continue home medications 3. Dementia, chronic 4. Recent TIA/stroke, on aspirin and lipitor 5. HTN,controlled 6. DM, ISS 7. 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 DVT prophylaxis: lovenox Result Diagram: 02/13/1960502/13/19605 Subjective 24 Hr Interval Summary Free Text/Dictation full alert but confused and agitated Exam/Review of Systems Exam Vitals Vital Signs Date Temp Pulse Resp B/P (MAP) Pulse Ox O2 O2 Flow FiO2 Time Delivery Rate 02/14/19 97.7 70 18 100/60 97 13:31 (73) 02/13/19 Room Air 15:17 Intake and Output 02/13/19 02/13/19 02/14/19 1515:00 23:00 07:00 IntakeIntake Total 250 ml 350 ml 420 ml BalanceBalance 250 ml 350 ml 420 ml Constitutional: alert, non-verbal, frail Head: normocephalic, atraumatic Eyes: nl conjunctiva, EOMI, nl lids, PERRL ENMT: nl external ears & nose, nl lips & teeth, nl nasal mucosa & septum Neck: supple, non-tender Respiratory: clear to auscultation, normal air movement; No congested cough, No crackles/rales, No diminished breath sounds, No intercostal retraction, No labored breathing, No respirations, No tactile fremitus, No wheezing, No other Cardiovascular: regular rate and rhythm, nl pulses; No bruits, No diastolic murmur, No edema, No gallop, No irregular rhythm, No jugular venous distention (JVD), No murmurs/extra sounds, No rub, No systolic murmur, No S3, No S4, No other Gastrointestinal: soft, nl liver, spleen, non-tender Musculoskeletal: nl extremities to inspection Extremities: normal pulses; No calf tenderness, No cyanosis, No clubbing, No edema, No pitting pedal edema, No palpable cord, No tenderness, No other 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: 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, 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 Medications Medication Current Medications IV Flush (NS 3 ml) 3 ml PER PROTOCOL IV ; Start 02/11/19 at 22:30 Ondansetron HCl (Zofran Inj) 4 mg Q6H PRN IV NAUSEA/VOMITING; Start 02/11/19 at 22:30 Aspirin (Aspirin) 81 mg DAILY PO Last administered on 02/14/19 08:59; Admin Dose 81 MG; Start 02/12/19 at 09:00 Acetaminophen (Tylenol Supp) 650 mg Q6H PRN [place] .PAIN 1-3 OR TEMP; Start 02/11/19 at 22:30 Enoxaparin Sodium (Lovenox) 40 mg DAILY SC Last administered on 02/14/19 09:13; Admin Dose 40 MG; Start 02/12/19 at 09:00 Albuterol/ Ipratropium (Duoneb) 3 ml Q2H RESP THERAPY PRN HHN SHORTNESS OF BREATH; Start 02/11/19 at 22:30 Atorvastatin Calcium (Lipitor) 10 mg HS PO Last administered on 02/13/19 20:36; Admin Dose 10 MG; Start 02/12/19 at 21:00 Amitriptyline HCl (Elavil) 50 mg QHS PO Last administered on 02/13/19 20:36; Admin Dose 50 MG; Start 02/12/19 at 21:00 Ammonium Lactate (Lac-Hydrin 12% Lotion) 1 applic DAILY TOP Last administered on 02/13/19 08:22; Admin Dose 1 APPLIC; Start 02/12/19 at 15:00 Carbidopa/Levodopa (Sinemet Cr (50/ 200)) 1 tab QID PO Last administered on 02/14/19 12:58; Admin Dose 1 TAB; Start 02/12/19 at 17:00 Cyclobenzaprine HCl (Flexeril) 5 mg DAILY PO Last administered on 02/14/19 08:59; Admin Dose 5 MG; Start 02/13/19 at 09:00 Ergocalciferol (Drisdol) 50,000 unit Q7D PO ; Start 02/12/19 at 15:00 Hydrocortisone (Procto-Justino) 1 applic DAILY TOP Last administered on 02/13/19at 08:21; Admin Dose 1 APPLIC; Start 02/13/19 at 09:00 Metformin HCl (Glucophage) 850 mg BID WITH MEALS PO Last administered on 02/14/19at 08:59; Admin Dose 850 MG; Start 02/12/19 at 17:55 Metoprolol Tartrate (Lopressor) 25 mg DAILY PO Last administered on 02/14/19at 09:00; Admin Dose 25 MG; Start 02/13/19 at 09:00 Ropinirole HCl (Requip) 1 mg BID PO Last administered on 02/14/19at 09:00; Admin Dose 1 MG; Start 02/12/19 at 15:00 Solifenacin (Vesicare) 10 mg DAILY PO Last administered on 02/14/19at 08:59; Admin Dose 10 MG; Start 02/12/19 at 15:00 Pantoprazole (Protonix Tab) 40 mg DAILY@06 PO Last administered on 02/13/19at 05:12; Admin Dose 40 MG; Start 02/13/19 at 06:00 Fish Oil (Fish Oil) 1,000 mg DAILY PO ; Start 02/13/19 at 09:00 Senna (Senokot) 1 tab DAILY PO Last administered on 02/14/19at 09:00; Admin Dose 1 TAB; Start 02/13/19 at 09:00 Potassium Chloride 10 meq/ Sodium Chloride 1,005 ml @ 100 mls/hr Q10H3M IV Last administered on 02/14/19at 12:58; Admin Dose 100 MLS/HR; Start 02/12/19 at 15:00 Miscellaneous Information 1 ea NOTE XX ; Start 02/12/19 at 15:00 Glucose (Glutose) 15 gm Q15M PRN PO DECREASED GLUCOSE; Start 02/12/19 at 15:00 Glucose (Glutose) 22.5 gm Q15M PRN PO DECREASED GLUCOSE; Start 02/12/19 at 15:00 Dextrose (D50w Syringe) 25 ml Q15M PRN IV DECREASED GLUCOSE; Start 02/12/19 at 15:00 Dextrose (D50w Syringe) 50 ml Q15M PRN IV DECREASED GLUCOSE; Start 02/12/19 at 15:00 Glucagon (Glucagen) 1 mg Q15M PRN IM DECREASED GLUCOSE; Start 02/12/19 at 15:00 Glucose (Glutose) 15 gm Q15M PRN BUCCAL DECREASED GLUCOSE; Start 02/12/19 at 15:00 Amantadine HCl (Symmetrel) 100 mg DAILY PO Last administered on 02/13/19at 09:00; Admin Dose 100 MG; Start 02/12/19 at 17:30 KEVIN STEWARD MD Feb 14, 2019 14:24
[2019-02-14] MEDS ORDERED: morphine 2 MG INJ IV PRN (14:30)
[2019-02-14] MEDS ORDERED: SOD CHLORIDE 0.9% 250 ML IV ONE (16:30)
[2019-02-14] MEDS: QUETIAPINE 25 MG TAB PO SCH (20:02)
[2019-02-14] MEDS: SERTRALINE 50 MG TAB PO SCH (20:06)
[2019-02-14] MEDS: clonAZEPAM 0.5 MG TAB PO SCH (22:42)
[2019-02-15] MEDS: POTASSIUM CHLORIDE 10 MEQ in SOD CHLORIDE 0.45% 1,000 ML IV SCH (05:48)
--- NOTE | 2019-02-15 06:09 | CONS ---
Assessment/Plan Assessment/Plan Assessment/Plan (Daily) Schedule today with patient's and son at 1030 for palliative care consultation to follow with family conference documentation. Consultation Date/Type/Reason Admit Date/Time Feb 11, 2019 at 21:32 Initial Consult Date Requesting Provider: KAMRON PIERRE Date/Time of Note DATE: 02/15/19 TIME: 06:07 Exam/Review of Systems Exam Vitals Vital Signs Date Temp Pulse Resp B/P (MAP) Pulse Ox O2 O2 Flow FiO2 Time Delivery Rate 02/14/19 78 18 115/66 22:30 (82) 02/14/19 98.0 98 Room Air 21:40 Intake and Output 02/14/19 02/14/19 02/15/19 1515:00 23:00 07:00 IntakeIntake Total 450 ml 555 ml BalanceBalance 450 ml 555 ml Results Result Diagram: 02/13/19 0606 02/13/19 0606 Results 24hrs Laboratory Tests Test 02/14/19 18:13 02/15/19 04:53 Bedside Glucose 99 White Blood Count Pending Red Blood Count Pending Hemoglobin Pending Hematocrit Pending Mean Corpuscular Volume Pending Mean Corpuscular Hemoglobin Pending Mean Corpuscular Hemoglobin Concent Pending Red Cell Distribution Width Pending Platelet Count Pending Mean Platelet Volume Pending Medications Medication Current Medications IV Flush (NS 3 ml) 3 ml PER PROTOCOL IV ; Start 02/11/19 at 22:30 Ondansetron HCl (Zofran Inj) 4 mg Q6H PRN IV NAUSEA/VOMITING; Start 02/11/19 at 22:30 Aspirin (Aspirin) 81 mg DAILY PO Last administered on 02/14/19at 08:59; Admin Dose 81 MG; Start 02/12/19 at 09:00 Acetaminophen (Tylenol Supp) 650 mg Q6H PRN [place] .PAIN 1-3 OR TEMP; Start 02/11/19 at 22:30 Enoxaparin Sodium (Lovenox) 40 mg DAILY SC Last administered on 02/14/19at 09:13; Admin Dose 40 MG; Start 02/12/19 at 09:00 Albuterol/ Ipratropium (Duoneb) 3 ml Q2H RESP THERAPY PRN HHN SHORTNESS OF BREATH; Start 02/11/19 at 22:30 Ammonium Lactate (Lac-Hydrin 12% Lotion) 1 applic DAILY TOP Last administered on 02/13/19at 08:22; Admin Dose 1 APPLIC; Start 02/12/19 at 15:00 Carbidopa/Levodopa (Sinemet Cr (50/ 200)) 1 tab QID PO Last administered on 02/14/19at 20:06; Admin Dose 1 TAB; Start 02/12/19 at 17:00 Ergocalciferol (Drisdol) 50,000 unit Q7D PO ; Start 02/12/19 at 15:00 Hydrocortisone (Procto-Justino) 1 applic DAILY TOP Last administered on 02/13/19at 08:21; Admin Dose 1 APPLIC; Start 02/13/19 at 09:00 Metformin HCl (Glucophage) 850 mg BID WITH MEALS PO Last administered on 02/14/19at 18:15; Admin Dose 850 MG; Start 02/12/19 at 17:55 Solifenacin (Vesicare) 10 mg DAILY PO Last administered on 02/14/19at 08:59; Admin Dose 10 MG; Start 02/12/19 at 15:00 Pantoprazole (Protonix Tab) 40 mg DAILY@06 PO Last administered on 02/13/19at 05:12; Admin Dose 40 MG; Start 02/13/19 at 06:00 Fish Oil (Fish Oil) 1,000 mg DAILY PO ; Start 02/13/19 at 09:00 Senna (Senokot) 1 tab DAILY PO Last administered on 02/14/19at 09:00; Admin Dose 1 TAB; Start 02/13/19 at 09:00 Potassium Chloride 10 meq/ Sodium Chloride 1,005 ml @ 75 mls/hr [id number] IV Last administered on 02/15/19at 05:48; Admin Dose 75 MLS/HR; Start 02/12/19 at 15:00 Miscellaneous Information 1 ea NOTE XX ; Start 02/12/19 at 15:00 Glucose (Glutose) 15 gm Q15M PRN PO DECREASED GLUCOSE; Start 02/12/19 at 15:00 Glucose (Glutose) 22.5 gm Q15M PRN PO DECREASED GLUCOSE; Start 02/12/19 at 15:00 Dextrose (D50w Syringe) 25 ml Q15M PRN IV DECREASED GLUCOSE; Start 02/12/19 at 15:00 Dextrose (D50w Syringe) 50 ml Q15M PRN IV DECREASED GLUCOSE; Start 02/12/19 at 15:00 Glucagon (Glucagen) 1 mg Q15M PRN IM DECREASED GLUCOSE; Start 02/12/19 at 15:00 Glucose (Glutose) 15 gm Q15M PRN BUCCAL DECREASED GLUCOSE; Start 02/12/19 at 15:00 Amantadine HCl (Symmetrel) 100 mg DAILY PO Last administered on 02/13/19 09:00; Admin Dose 100 MG; Start 02/12/19 at 17:30 Morphine Sulfate (morphine) 2 mg Q4H PRN IV SEVERE PAIN LEVEL 7-10 Last administered on 02/14/19at 14:34; Admin Dose 2 MG; Start 02/14/19 at 14:30 Sertraline HCl (Zoloft) 50 mg HS PO Last administered on 02/14/19at 20:06; Admin Dose 50 MG; Start 02/14/19 at 21:00 Quetiapine Fumarate (Seroquel) 25 mg BID PO Last administered on 02/14/19at 20:02; Admin Dose 25 MG; Start 02/14/19 at 21:00 Clonazepam (Klonopin) 0.5 mg Q8 PO Last administered on 02/14/19at 22:42; Admin Dose 0.5 MG; Start 02/14/19 at 22:00 MERCY DAVIS Feb 15, 2019 06:09
[2019-02-15 06:17] VITALS: BP 126/76; PULSE 88; RESP 18
[2019-02-15] MEDS: PANTOPRAZOLE (EC) 40 MG TAB PO SCH (06:20)
[2019-02-15] MEDS: clonAZEPAM 0.5 MG TAB PO SCH ×3 (06:20→20:02)
[2019-02-15] MEDS: HYDROCORTISONE 1% 26 GM RECT CR TOP SCH (09:00)
[2019-02-15] MEDS: AMMONIUM LACTATE 12% 225 GM LOT TOP SCH (09:00)
[2019-02-15] MEDS: ASPIRIN 81 MG TAB PO SCH (09:13)
[2019-02-15] MEDS: metFORMIN 850 MG TAB PO SCH ×2 (09:13→18:53)
[2019-02-15] MEDS: CARBIDOPA/LEVODOPA 50-200 (CR) TAB PO SCH ×4 (09:13→20:03)
[2019-02-15] MEDS: FISH OIL 1,000 MG CAP PO SCH (09:13)
[2019-02-15] MEDS: SENNA TAB PO SCH (09:13)
[2019-02-15] MEDS: QUETIAPINE 25 MG TAB PO SCH ×2 (09:13→20:02)
[2019-02-15] MEDS: SOLIFENACIN 5 MG TAB PO SCH (09:14)
[2019-02-15] MEDS: AMANTADINE 100 MG/10 ML POSYR PO SCH (09:14)
[2019-02-15] MEDS: ENOXAPARIN 40 MG/0.4 ML SYG SC SCH (09:16)
[2019-02-15] MEDS: SOD CHLORIDE 0.45% 1,000 ML IV SCH (12:13)
--- NOTE | 2019-02-15 12:21 | PN ---
Date/Time of Note Date/Time of Note DATE: 02/15/19 TIME: 12:18 Assessment/Plan VTE Prophylaxis Risk score (from Nsg)>0 risk: 7 SCD applied (from Nsg): Yes Pharmacological prophylaxis: LMWH Lines/Catheters IV Catheter Type (from Nrsg): Peripheral IV Urinary Cath still in place: No Assessment/Plan Assessment/Plan 1. Acute encephalopathy, improving 2. Parkinson's disease, stable 3. Dementia, chronic, severe 4. Recent TIA/stroke, on aspirin, the son rejects lipitor 5. HTN,controlled 6. DM, ISS 7. 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 K 5.3, remove K in IVF, repeat in am 9. DVT prophylaxis: lovenox 10. Talked with the son about conditions and plans Result Diagram: 02/15/19 0453 02/15/19 0453 Results 24hrs Laboratory Tests Test 02/14/19 18:13 02/15/19 04:53 Bedside Glucose 99 White Blood Count 6.4 # Red Blood Count 3.79 L Hemoglobin 11.7 L Hematocrit 34.0 L Mean Corpuscular Volume 89.7 Mean Corpuscular Hemoglobin 30.9 Mean Corpuscular Hemoglobin Concent 34.4 Red Cell Distribution Width 12.6 Platelet Count 182 Mean Platelet Volume 9.3 Immature Granulocytes % 0.800 H Neutrophils % 67.8 Lymphocytes % 20.0 Monocytes % 8.7 Eosinophils % 2.2 Basophils % 0.5 Nucleated Red Blood Cells % 0.0 Immature Granulocytes # 0.050 H Neutrophils # 4.4 Lymphocytes # 1.3 Monocytes # 0.6 Eosinophils # 0.1 Basophils # 0.0 Nucleated Red Blood Cells # 0.0 Sodium Level 142 Potassium Level 5.3 H Chloride Level 111 H Carbon Dioxide Level 23 Anion Gap 8 Blood Urea Nitrogen 11 Creatinine 0.54 Est Glomerular Filtrat Rate mL/min Glucose Level 68 L Calcium Level 8.5 Total Bilirubin 0.4 Direct Bilirubin 0.00 Indirect Bilirubin 0.4 Aspartate Amino Transf (AST/SGOT) 34 Alanine Aminotransferase (ALT/SGPT) 12 L Alkaline Phosphatase 45 Total Protein 5.9 L Albumin 2.9 L Globulin 3.00 Albumin/Globulin Ratio 0.96 Subjective 24 Hr Interval Summary Free Text/Dictation full alert, finished lunch, no distress Exam/Review of Systems Exam Vitals Vital Signs Date Temp Pulse Resp B/P (MAP) Pulse Ox O2 O2 Flow FiO2 Time Delivery Rate 02/15/19 97.9 88 18 126/76 96 Room Air 06:17 (93) Intake and Output 02/14/19 02/14/19 02/15/19 1515:00 23:00 07:00 IntakeIntake Total 480 ml 585 ml BalanceBalance 480 ml 585 ml Constitutional: alert, well developed, frail Head: normocephalic, atraumatic Eyes: nl conjunctiva, EOMI, nl lids, PERRL ENMT: nl external ears & nose, nl lips & teeth, nl nasal mucosa & septum Neck: supple, non-tender Respiratory: clear to auscultation, normal air movement; No congested cough, No crackles/rales, No diminished breath sounds, No intercostal retraction, No labored breathing, No respirations, No tactile fremitus, No wheezing, No other Cardiovascular: regular rate and rhythm, nl pulses; No bruits, No diastolic murmur, No edema, No gallop, No irregular rhythm, No jugular venous distention (JVD), No murmurs/extra sounds, No rub, No systolic murmur, No S3, No S4, No other Gastrointestinal: soft, nl liver, spleen, non-tender Musculoskeletal: nl extremities to inspection Extremities: normal pulses; No calf tenderness, No cyanosis, No clubbing, No edema, No pitting pedal edema, No palpable cord, No tenderness, No other 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: PATIENT ADVOCATE II-XII intact, confused Results Results 24hrs Laboratory Tests Test 02/14/19 18:13 02/15/19 04:53 Bedside Glucose 99 White Blood Count 6.4 # Red Blood Count 3.79 L Hemoglobin 11.7 L Hematocrit 34.0 L Mean Corpuscular Volume 89.7 Mean Corpuscular Hemoglobin 30.9 Mean Corpuscular Hemoglobin Concent 34.4 Red Cell Distribution Width 12.6 Platelet Count 182 Mean Platelet Volume 9.3 Immature Granulocytes % 0.800 H Neutrophils % 67.8 Lymphocytes % 20.0 Monocytes % 8.7 Eosinophils % 2.2 Basophils % 0.5 Nucleated Red Blood Cells % 0.0 Immature Granulocytes # 0.050 H Neutrophils # 4.4 Lymphocytes # 1.3 Monocytes # 0.6 Eosinophils # 0.1 Basophils # 0.0 Nucleated Red Blood Cells # 0.0 Sodium Level 142 Potassium Level 5.3 H Chloride Level 111 H Carbon Dioxide Level 23 Anion Gap 8 Blood Urea Nitrogen 11 Creatinine 0.54 Est Glomerular Filtrat Rate mL/min Glucose Level 68 L Calcium Level 8.5 Total Bilirubin 0.4 Direct Bilirubin 0.00 Indirect Bilirubin 0.4 Aspartate Amino Transf (AST/SGOT) 34 Alanine Aminotransferase (ALT/SGPT) 12 L Alkaline Phosphatase 45 Total Protein 5.9 L Albumin 2.9 L Globulin 3.00 Albumin/Globulin Ratio 0.96 Medications Medication Current Medications IV Flush (NS 3 ml) 3 ml PER PROTOCOL IV ; Start 02/11/19 at 22:30 Ondansetron HCl (Zofran Inj) 4 mg Q6H PRN IV NAUSEA/VOMITING; Start 02/11/19 at 22:30 Aspirin (Aspirin) 81 mg DAILY PO Last administered on 02/15/19 09:13; Admin Dose 81 MG; Start 02/12/19 at 09:00 Acetaminophen (Tylenol Supp) 650 mg Q6H PRN [place] .PAIN 1-3 OR TEMP; Start at 22:30 Enoxaparin Sodium (Lovenox) 40 mg DAILY SC Last administered on 02/15/19 09:16; Admin Dose 40 MG; Start 02/12/19 at 09:00 Albuterol/ Ipratropium (Duoneb) 3 ml Q2H RESP THERAPY PRN HHN SHORTNESS OF BREATH; Start 02/11/19 at 22:30 Ammonium Lactate (Lac-Hydrin 12% Lotion) 1 applic DAILY TOP Last administered on 02/13/19at 08:22; Admin Dose 1 APPLIC; Start 02/12/19 at 15:00 Carbidopa/Levodopa (Sinemet Cr (50/ 200)) 1 tab QID PO Last administered on 02/15/19 09:13; Admin Dose 1 TAB; Start 02/12/19 at 17:00 Ergocalciferol (Drisdol) 50,000 unit Q7D PO ; Start 02/12/19 at 15:00 Hydrocortisone (Procto-Justino) 1 applic DAILY TOP Last administered on 02/13/19at 08:21; Admin Dose 1 APPLIC; Start 02/13/19 at 09:00 Metformin HCl (Glucophage) 850 mg BID WITH MEALS PO Last administered on 02/15/19 09:13; Admin Dose 850 MG; Start 02/12/19 at 17:55 Solifenacin (Vesicare) 10 mg DAILY PO Last administered on 02/15/19 09:14; Admin Dose 10 MG; Start 02/12/19 at 15:00 Pantoprazole (Protonix Tab) 40 mg DAILY@06 PO Last administered on 02/15/19 06:20; Admin Dose 40 MG; Start 02/13/19 at 06:00 Fish Oil (Fish Oil) 1,000 mg DAILY PO Last administered on 02/15/19 09:13; Admin Dose 1,000 MG; Start 02/13/19 at 09:00 Senna (Senokot) 1 tab DAILY PO Last administered on 02/15/19 09:13; Admin Dose 1 TAB; Start 02/13/19 at 09:00 Miscellaneous Information 1 ea NOTE XX ; Start 02/12/19 at 15:00 Glucose (Glutose) 15 gm Q15M PRN PO DECREASED GLUCOSE; Start 02/12/19 at 15:00 Glucose (Glutose) 22.5 gm Q15M PRN PO DECREASED GLUCOSE; Start 02/12/19 at 15:00 Dextrose (D50w Syringe) 25 ml Q15M PRN IV DECREASED GLUCOSE; Start 02/12/19 at 15:00 Dextrose (D50w Syringe) 50 ml Q15M PRN IV DECREASED GLUCOSE; Start 02/12/19 at 15:00 Glucagon (Glucagen) 1 mg Q15M PRN IM DECREASED GLUCOSE; Start 02/12/19 at 15:00 Glucose (Glutose) 15 gm Q15M PRN BUCCAL DECREASED GLUCOSE; Start 02/12/19 at 15:00 Amantadine HCl (Symmetrel) 100 mg DAILY PO Last administered on 02/15/19 09:14; Admin Dose 100 MG; Start 02/12/19 at 17:30 Morphine Sulfate (morphine) 2 mg Q4H PRN IV SEVERE PAIN LEVEL 7-10 Last ad ministered on 02/14/19at 14:34; Admin Dose 2 MG; Start 02/14/19 at 14:30 Sertraline HCl (Zoloft) 50 mg HS PO Last administered on 02/14/19at 20:06; Admin Dose 50 MG; Start 02/14/19 at 21:00 Quetiapine Fumarate (Seroquel) 25 mg BID PO Last administered on 02/15/19at 09:13; Admin Dose 25 MG; Start 02/14/19 at 21:00 Clonazepam (Klonopin) 0.5 mg Q8 PO Last administered on 02/15/19at 06:20; Admin Dose 0.5 MG; Start 02/14/19 at 22:00 Sodium Chloride 1,000 ml @ 75 mls/hr [id number] IV Last administered on 02/15/19at 12:13; Admin Dose 75 MLS/HR; Start 02/15/19 at 11:30 KEVIN STEWARD MD Feb 15, 2019 12:21
[2019-02-15 14:16] VITALS: BP 105/57; PULSE 84; RESP 18
[2019-02-15] MEDS: BALSAM PERU/CASTOR OIL 60 GM TUBE TOP SCH (18:23)
[2019-02-15] MEDS: SERTRALINE 50 MG TAB PO SCH (20:02)
[2019-02-15 20:29] VITALS: BP 128/72; PULSE 92; RESP 20
[2019-02-16] MEDS: SOD CHLORIDE 0.45% 1,000 ML IV SCH ×2 (00:37→14:41)
[2019-02-16 02:11] VITALS: BP 115/56; RESP 18
[2019-02-16] MEDS: PANTOPRAZOLE (EC) 40 MG TAB PO SCH (05:42)
[2019-02-16] MEDS: clonAZEPAM 0.5 MG TAB PO SCH (05:42)
[2019-02-16 07:40] VITALS: BP 135/73; PULSE 77; RESP 18
[2019-02-16] MEDS: metFORMIN 850 MG TAB PO SCH (08:00)
[2019-02-16] MEDS: FISH OIL 1,000 MG CAP PO SCH (08:34)
[2019-02-16] MEDS: QUETIAPINE 25 MG TAB PO SCH ×2 (08:34→20:07)
[2019-02-16] MEDS: SENNA TAB PO SCH (08:34)
[2019-02-16] MEDS: AMANTADINE 100 MG/10 ML POSYR PO SCH (08:38)
[2019-02-16] MEDS: ASPIRIN 81 MG TAB PO SCH (08:38)
[2019-02-16] MEDS: CARBIDOPA/LEVODOPA 50-200 (CR) TAB PO SCH ×4 (08:38→20:07)
[2019-02-16] MEDS: SOLIFENACIN 5 MG TAB PO SCH (08:39)
[2019-02-16] MEDS: ENOXAPARIN 40 MG/0.4 ML SYG SC SCH (08:39)
[2019-02-16] MEDS: BALSAM PERU/CASTOR OIL 60 GM TUBE TOP SCH (08:40)
[2019-02-16] MEDS: AMMONIUM LACTATE 12% 225 GM LOT TOP SCH (11:07)
--- NOTE | 2019-02-16 12:49 | PN ---
Date/Time of Note Date/Time of Note DATE: 02/16/19 TIME: 12:44 Assessment/Plan VTE Prophylaxis Risk score (from Ns)>0 risk: 6 SCD applied (from Ns): Yes Pharmacological prophylaxis: LMWH Lines/Catheters IV [facility]ter Type (from [facility] [place] Urinary Cath still in place: No Assessment/Plan Hospital Course Assessment and plan 1. Reported aphasia with encephalopathy. Brain MRI with no evident evidence of acute intracranial pathology. Patient was seen by neurologist. Suspect toxic metabolic issue. Appears to be largely resolving. 2. Parkinson's disease. Resume on Sinemet 3. History of dementia. Continue with reorientation. Aspiration precautions. 4. History of TIA//CVA. Continue on antiplatelet therapy. At present patient's family refusing statin medication. 5. History of hypertension. Will provide with antihypertensives and dyspnea. 6. History of diabetes. Glucose trend stable at present. Adjust metformin dosage 7. 2.7 x 3.1 x 3.8 similar right carotid paraganglioma. Patient for outpatient follow-up Disposition and plan. Awaiting acute rehab unit evaluation. We will follow-up Discussed POC with Dr. Desai Result Diagram: 02/15/19 0453 02/16/19 0454 Results 24hrs Laboratory Tests Test 02/16/19 04:54 Sodium Level 138 Potassium Level 4.3 Chloride Level 107 Carbon Dioxide Level 23 Anion Gap 8 Blood Urea Nitrogen 11 Creatinine 0.59 Est Glomerular Filtrat Rate mL/min Glucose Level 68 L Calcium Level 8.5 Subjective 24 Hr Interval Summary Free Text/Dictation Patient alert, no s/s of distress. family at bedside. Exam/Review of Systems Exam Vitals Vital Signs Date Temp Pulse Resp B/P (MAP) Pulse Ox O2 O2 Flow FiO2 Time Delivery Rate 02/16/19 97.0 77 18 135/73 98 07:40 (93) 02/15/19 Room Air 06:17 Intake and Output 02/15/19 02/15/19 02/16/19 1515:00 23:00 07:00 IntakeIntake Total 200 ml 480 ml 1300 ml BalanceBalance 200 ml 480 ml 1300 ml Constitutional: alert Psych: no complaints Head: normocephalic Respiratory: clear to auscultation, normal air movement Cardiovascular: other (regular rate ) Musculoskeletal: muscle weakness 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: nl mental status Skin: other (redness on sacral area ) Results Results 24hrs Laboratory Tests Test 02/16/19 04:54 Sodium Level 138 Potassium Level 4.3 Chloride Level 107 Carbon Dioxide Level 23 Anion Gap 8 Blood Urea Nitrogen 11 Creatinine 0.59 Est Glomerular Filtrat Rate mL/min Glucose Level 68 L Calcium Level 8.5 Medications Medication Current Medications IV Flush (NS 3 ml) 3 ml PER PROTOCOL IV ; Start 02/11/19 at 22:30 Ondansetron HCl (Zofran Inj) 4 mg Q6H PRN IV NAUSEA/VOMITING; Start 02/11/19 at 22:30 Aspirin (Aspirin) 81 mg DAILY PO Last administered on 02/16/19 08:38; Admin Dose 81 MG; Start 02/12/19 at 09:00 Acetaminophen (Tylenol Supp) 650 mg Q6H PRN [place] .PAIN 1-3 OR TEMP; Start 02/11/19 at 22:30 Enoxaparin Sodium (Lovenox) 40 mg DAILY SC Last administered on 02/16/19 08:39; Admin Dose 40 MG; Start 02/12/19 at 09:00 Albuterol/ Ipratropium (Duoneb) 3 ml Q2H RESP THERAPY PRN HHN SHORTNESS OF BREATH; Start 02/11/19 at 22:30 Ammonium Lactate (Lac-Hydrin 12% Lotion) 1 applic DAILY TOP Last administered on 02/16/19 11:07; Admin Dose 1 APPLIC; Start 02/12/19 at 15:00 Carbidopa/Levodopa (Sinemet Cr (50/ 200)) 1 tab QID PO Last administered on 02/16/19 08:38; Admin Dose 1 TAB; Start 02/12/19 at 17:00 Ergocalciferol (Drisdol) 50,000 unit Q7D PO ; Start 02/12/19 at 15:00 Solifenacin (Vesicare) 10 mg DAILY PO Last administered on 02/16/19 08:39; Admin Dose 10 MG; Start 02/12/19 at 15:00 Pantoprazole (Protonix Tab) 40 mg DAILY@06 PO Last administered on 02/16/19 05:42; Admin Dose 40 MG; Start 02/13/19 at 06:00 Fish Oil (Fish Oil) 1,000 mg DAILY PO Last administered on 8/3/19at 08:34; Admin Dose 1,000 MG; Start 02/13/19 at 09:00 Senna (Senokot) 1 tab DAILY PO Last administered on 02/16/19 08:34; Admin Dose 1 TAB; Start 02/13/19 at 09:00 Miscellaneous Information 1 ea NOTE XX ; Start 02/12/19 at 15:00 Glucose (Glutose) 15 gm Q15M PRN PO DECREASED GLUCOSE; Start 02/12/19 at 15:00 Glucose (Glutose) 22.5 gm Q15M PRN PO DECREASED GLUCOSE; Start 02/12/19 at 15:00 Dextrose (D50w Syringe) 25 ml Q15M PRN IV DECREASED GLUCOSE; Start 02/12/19 at 15:00 Dextrose (D50w Syringe) 50 ml Q15M PRN IV DECREASED GLUCOSE; Start 02/12/19 at 15:00 Glucagon (Glucagen) 1 mg Q15M PRN IM DECREASED GLUCOSE; Start 02/12/19 at 15:00 Glucose (Glutose) 15 gm Q15M PRN BUCCAL DECREASED GLUCOSE; Start 02/12/19 at 15:00 Amantadine HCl (Symmetrel) 100 mg DAILY PO Last administered on 02/16/19at 08:38; Admin Dose 100 MG; Start 02/12/19 at 17:30 Morphine Sulfate (morphine) 2 mg Q4H PRN IV SEVERE PAIN LEVEL 7-10 Last administered on 02/14/19at 14:34; Admin Dose 2 MG; Start 02/14/19 at 14:30 Sertraline HCl (Zoloft) 50 mg HS PO Last administered on 02/15/19at 20:02; Admin Dose 50 MG; Start 02/14/19 at 21:00 Quetiapine Fumarate (Seroquel) 25 mg BID PO Last administered on 02/16/19 08:34; Admin Dose 25 MG; Start 02/14/19 at 21:00 Sodium Chloride 1,000 ml @ 75 mls/hr [id number] IV Last administered on 02/16/19at 00:37; Admin Dose 75 MLS/HR; Start 02/15/19 at 11:30 PEPE GARCIA NP Feb 16, 2019 12:49
[2019-02-16 13:48] VITALS: BP 152/82; PULSE 78; RESP 20
[2019-02-16] MEDS: ACCU-CHEK XX SCH ×2 (17:30→21:00)
[2019-02-16] MEDS: metFORMIN 500 MG TAB PO SCH (18:02)
[2019-02-16 19:52] VITALS: BP 129/64; PULSE 79; RESP 19
[2019-02-16] MEDS: SERTRALINE 50 MG TAB PO SCH (20:07)
[2019-02-17 03:00] VITALS: BP 130/62; PULSE 64; RESP 18
[2019-02-17] MEDS: SOD CHLORIDE 0.45% 1,000 ML IV SCH ×3 (05:17→18:32)
[2019-02-17] MEDS: ACCU-CHEK XX SCH ×4 (07:00→20:17)
[2019-02-17 07:36] VITALS: BP 149/67; PULSE 66; RESP 18
[2019-02-17] MEDS: metFORMIN 500 MG TAB PO SCH ×2 (08:43→17:43)
[2019-02-17] MEDS: SOLIFENACIN 5 MG TAB PO SCH (08:43)
[2019-02-17] MEDS: FISH OIL 1,000 MG CAP PO SCH (08:43)
[2019-02-17] MEDS: LANSOPRAZOLE 30 MG CAP PO SCH (08:43)
[2019-02-17] MEDS: QUETIAPINE 25 MG TAB PO SCH ×2 (08:43→20:17)
[2019-02-17] MEDS: ASPIRIN 81 MG TAB PO SCH (08:43)
[2019-02-17] MEDS: SENNA TAB PO SCH (08:43)
[2019-02-17] MEDS: CARBIDOPA/LEVODOPA 50-200 (CR) TAB PO SCH ×4 (08:43→20:17)
--- NOTE | 2019-02-17 08:45 | PN ---
Date/Time of Note Date/Time of Note DATE: 02/17/19 TIME: 08:43 Assessment/Plan VTE Prophylaxis Risk score (from Ns)>0 risk: 6 SCD applied (from Ns): Yes Pharmacological prophylaxis: LMWH Lines/Catheters IV Catheter Type (from Nrs): Peripheral IV Urinary Cath still in place: No Assessment/Plan Hospital Course Assessment and plan 1. Reported aphasia with encephalopathy. Brain MRI with no evident evidence of acute intracranial pathology. Patient was seen by neurologist. Suspect toxic metabolic issue. Appears to be largely resolving. (has underlying dementia) 2. Parkinson's disease. Resume on Sinemet 3. History of dementia. Continue with reorientation. Aspiration precautions. 4. History of TIA//CVA. Continue on antiplatelet therapy. At present patient's family refusing statin medication. 5. History of hypertension. Will provide with antihypertensives and dyspnea. 6. History of diabetes. Glucose trend stable at present. 7. 2.7 x 3.1 x 3.8 similar right carotid paraganglioma. Patient for outpatient follow-up Disposition and plan. Awaiting acute rehab unit evaluation. f/u AM labs. Discussed POC with Dr. Desai Result Diagram: 02/15/19 0453 02/16/19 0454 Results 24hrs Laboratory Tests Test 02/16/19 18:01 02/16/19 21:34 Bedside Glucose 101 184 Subjective 24 Hr Interval Summary Free Text/Dictation comfortable. no respiratory distress seen. no c/o pain Exam/Review of Systems Exam Vitals Vital Signs Date Temp Pulse Resp B/P (MAP) Pulse Ox O2 O2 Flow FiO2 Time Delivery Rate 02/17/19 97.7 66 18 149/67 96 07:36 (94) 02/15/19 Room Air 06:17 Intake and Output 02/16/19 02/16/19 02/17/19 1515:00 23:00 07:00 IntakeIntake Total 1590 ml 270 ml 850 ml BalanceBalance 1590 ml 270 ml 850 ml Exam Constitutional: alert Psych: no complaints Head: normocephalic Respiratory: clear to auscultation, normal air movement Cardiovascular: other (regular rate ) Musculoskeletal: muscle weakness 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: nl mental status Skin: other (redness on sacral area ) Results Results 24hrs Laboratory Tests Test 02/16/19 18:01 02/16/19 21:34 Bedside Glucose 101 184 Medications Medication Current Medications IV Flush (NS 3 ml) 3 ml PER PROTOCOL IV ; Start 02/11/19 at 22:30 Ondansetron HCl (Zofran Inj) 4 mg Q6H PRN IV NAUSEA/VOMITING; Start 02/11/19 at 22:30 Aspirin (Aspirin) 81 mg DAILY PO Last administered on 02/16/19 08:38; Admin Dose 81 MG; Start 02/12/19 at 09:00 Acetaminophen (Tylenol Supp) 650 mg Q6H PRN [place] .PAIN 1-3 OR TEMP; Start 02/11/19 at 22:30 Enoxaparin Sodium (Lovenox) 40 mg DAILY SC Last administered on 02/16/19 08:39; Admin Dose 40 MG; Start 02/12/19 at 09:00 Albuterol/ Ipratropium (Duoneb) 3 ml Q2H RESP THERAPY PRN HHN SHORTNESS OF BREATH; Start 02/11/19 at 22:30 Ammonium Lactate (Lac-Hydrin 12% Lotion) 1 applic DAILY TOP Last administered on 02/16/19at 11:07; Admin Dose 1 APPLIC; Start 02/12/19 at 15:00 Carbidopa/Levodopa (Sinemet Cr (50/ 200)) 1 tab QID PO Last administered on 02/16/19at 20:07; Admin Dose 1 TAB; Start 02/12/19 at 17:00 Ergocalciferol (Drisdol) 50,000 unit Q7D PO ; Start 02/12/19 at 15:00 Solifenacin (Vesicare) 10 mg DAILY PO Last administered on 02/16/19 08:39; Admin Dose 10 MG; Start 02/12/19 at 15:00 Fish Oil (Fish Oil) 1,000 mg DAILY PO Last administered on 02/16/19 08:34; Admin Dose 1,000 MG; Start 02/13/19 at 09:00 Senna (Senokot) 1 tab DAILY PO Last administered on 02/16/19 08:34; Admin Dose 1 TAB; Start 02/13/19 at 09:00 Miscellaneous Information 1 ea NOTE XX ; Start 02/12/19 at 15:00 Glucose (Glutose) 15 gm Q15M PRN PO DECREASED GLUCOSE; Start 02/12/19 at 15:00 Glucose (Glutose) 22.5 gm Q15M PRN PO DECREASED GLUCOSE; Start 02/12/19 at 15:00 Dextrose (D50w Syringe) 25 ml Q15M PRN IV DECREASED GLUCOSE; Start 02/12/19 at 15:00 Dextrose (D50w Syringe) 50 ml Q15M PRN IV DECREASED GLUCOSE; Start 02/12/19 at 15:00 Glucagon (Glucagen) 1 mg Q15M PRN IM DECREASED GLUCOSE; Start 02/12/19 at 15:00 Glucose (Glutose) 15 gm Q15M PRN BUCCAL DECREASED GLUCOSE; Start 02/12/19 at 15:00 Amantadine HCl (Symmetrel) 100 mg DAILY PO Last administered on 02/16/19at 08:38; Admin Dose 100 MG; Start 02/12/19 at 17:30 Morphine Sulfate (morphine) 2 mg Q4H PRN IV SEVERE PAIN LEVEL 7-10 Last administered on 02/14/19at 14:34; Admin Dose 2 MG; Start 02/14/19 at 14:30 Sertraline HCl (Zoloft) 50 mg HS PO Last administered on 02/16/19at 20:07; Admin Dose 50 MG; Start 02/14/19 at 21:00 Quetiapine Fumarate (Seroquel) 25 mg BID PO Last administered on 02/16/19at 20:07; Admin Dose 25 MG; Start 02/14/19 at 21:00 Sodium Chloride 1,000 ml @ 75 mls/hr [id number] IV Last administered on 02/17/19at 05:17; Admin Dose 75 MLS/HR; Start 02/15/19 at 11:30 Metformin HCl (Glucophage) 500 mg BID WITH MEALS PO Last administered on 02/16/19at 18:02; Admin Dose 500 MG; Start 02/16/19 at 18:00 Diagnostic Test (Pha) (Accu-Chek) 1 ea AC MEALS AND BEDTIME XX ; Start 02/16/19 at 17:30 Lansoprazole (Prevacid) 30 mg DAILY@06 PO ; Start 02/17/19 at 06:00 PEPE GARCIA NP Feb 17, 2019 08:45
[2019-02-17] MEDS: AMMONIUM LACTATE 12% 225 GM LOT TOP SCH (08:46)
[2019-02-17] MEDS: BALSAM PERU/CASTOR OIL 60 GM TUBE TOP SCH (08:46)
[2019-02-17] MEDS: ENOXAPARIN 40 MG/0.4 ML SYG SC SCH (09:03)
[2019-02-17] MEDS: AMANTADINE 100 MG/10 ML POSYR PO SCH (10:45)
[2019-02-17 12:57] VITALS: BP 136/83; PULSE 90; RESP 18
[2019-02-17 19:53] VITALS: BP 113/59; PULSE 93; RESP 17
[2019-02-17] MEDS: SERTRALINE 50 MG TAB PO SCH (20:17)
[2019-02-18 01:09] VITALS: BP 117/57; PULSE 89; RESP 18
[2019-02-18] MEDS: LANSOPRAZOLE 30 MG CAP PO SCH (05:40)
[2019-02-18] MEDS: ACCU-CHEK XX SCH ×4 (07:00→20:23)
[2019-02-18] MEDS: SOD CHLORIDE 0.45% 1,000 ML IV SCH (07:01)
[2019-02-18 07:45] VITALS: BP 140/61; PULSE 85; RESP 18
[2019-02-18] MEDS: ASPIRIN 81 MG TAB PO SCH (09:11)
[2019-02-18] MEDS: FISH OIL 1,000 MG CAP PO SCH (09:12)
[2019-02-18] MEDS: metFORMIN 500 MG TAB PO SCH ×2 (09:12→17:43)
[2019-02-18] MEDS: SOLIFENACIN 5 MG TAB PO SCH (09:12)
[2019-02-18] MEDS: CARBIDOPA/LEVODOPA 50-200 (CR) TAB PO SCH ×4 (09:12→20:23)
[2019-02-18] MEDS: SENNA TAB PO SCH (09:12)
[2019-02-18] MEDS: QUETIAPINE 25 MG TAB PO SCH ×2 (09:13→20:22)
[2019-02-18] MEDS: AMANTADINE 100 MG/10 ML POSYR PO SCH (09:13)
[2019-02-18] MEDS: ENOXAPARIN 40 MG/0.4 ML SYG SC SCH (09:25)
[2019-02-18] MEDS: AMMONIUM LACTATE 12% 225 GM LOT TOP SCH (09:26)
[2019-02-18] MEDS: BALSAM PERU/CASTOR OIL 60 GM TUBE TOP SCH (09:26)
[2019-02-18 13:50] VITALS: BP 138/67; PULSE 59; RESP 18
--- NOTE | 2019-02-18 15:39 | PN ---
Date/Time of Note Date/Time of Note DATE: 02/18/19 TIME: 15:38 Assessment/Plan VTE Prophylaxis Risk score (from Ns)>0 risk: 3 SCD applied (from Nsg): Yes Pharmacological prophylaxis: LMWH Lines/Catheters IV Catheter Type (from Nrs): Peripheral IV Urinary Cath still in place: No Assessment/Plan Hospital Course SUBJECTIVE: Patient's grandson at the bedside. Continues to remain confused. OBJECTIVE: Physical Exam General: Adequately build 83 year-old female lying in bed in no apparent distress. HEENT: Normocephalic, atraumatic. Eyes: Anicteric sclerae, conjunctivae clear. ENT: Nasal septum midline, oral mucosa moist. Neck supple, no JVD noticed. Respiratory: Bilaterally diminished breath sounds. No use of accessory muscles of respiration. No adventitious breath sounds. Cardiovascular: S1, S2 heard. Regular rate and rhythm. Abdomen: Soft, nontender, and nondistended. Bowel sounds positive in all 4 quadrants. Genitourinary: Deferred. Extremities: No cyanosis, no clubbing, no edema. Neurologic: The patient is awake and alert. Labs & Vitals per chart ASSESSMENT & PLAN 83-year-old female with comorbidities including hypertension, dyslipidemia, diabetes, CVA, Parkinson's disease, and dementia who was brought in by rescue ambulance from home because of inability to speak, who was admitted to inpatient setting for further treatment and evaluation. 1. Acute encephalopathy w/ aphasia. Etiology unclear. Most probably toxic metabolic in origin. Imaging studies negative for any acute stroke. Being followed by neurology. Continue PT, ST. 2. Parkinson's disease. Continue antiparkinsonian medications. 3. Diabetes mellitus. Continue biguanides. Hemoglobin A1c 5.4. 4. Hypertension. Continue antihypertensives. 5. Normocytic, normochromic anemia. Monitor H&H closely. 6. 1. 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 Management as outpatient. 7. Fluids, electrolytes, and nutrition. Pured diet. 8. DVT prophylaxis. Subcutaneous Lovenox. 9. Plan. Continue inpatient monitoring. Needs alf facility upon discharge. The patient was seen in collaboration with Dr. Fabian. Result Diagram: 02/18/19 0505 02/18/19 0505 Results 24hrs Laboratory Tests Test 02/17/19 17:42 02/17/19 20:15 02/18/19 05:05 02/18/19 08:11 Bedside Glucose 123 138 87 White Blood Count 5.2 Red Blood Count 3.37 L Hemoglobin 10.2 L Hematocrit 30.7 L Mean Corpuscular Volume 91.1 Mean Corpuscular 30.3 Hemoglobin Mean Corpuscular 33.2 Hemoglobin Concent Red Cell Distribution 13.0 Width Platelet Count 205 Mean Platelet Volume 9.6 Immature Granulocytes % 1.000 H Neutrophils % 60.3 Lymphocytes % 27.2 Monocytes % 8.6 Eosinophils % 2.5 Basophils % 0.4 Nucleated Red Blood 0.0 Cells % Immature Granulocytes # 0.050 H Neutrophils # 3.2 Lymphocytes # 1.4 Monocytes # 0.5 Eosinophils # 0.1 Basophils # 0.0 Nucleated Red Blood 0.0 Cells # Sodium Level 139 Potassium Level 4.0 Chloride Level 106 Carbon Dioxide Level 26 Anion Gap 7 Blood Urea Nitrogen 15 Creatinine 0.58 Est Glomerular Filtrat Rate mL/min Glucose Level 77 Calcium Level 8.5 Test 02/18/19 12:37 Bedside Glucose 119 Exam/Review of Systems Exam Vitals Vital Signs Date Temp Pulse Resp B/P (MAP) Pulse Ox O2 O2 Flow FiO2 Time Delivery Rate 02/18/19 98.7 59 18 138/67 94 13:50 (90) 02/15/19 Room Air 06:17 Intake and Output 02/17/19 02/17/19 02/18/19 1515:00 23:00 07:00 IntakeIntake Total 720 ml 1240 ml 1010 ml BalanceBalance 720 ml 1240 ml 1010 ml Results Results 24hrs Laboratory Tests Test 02/17/19 17:42 02/17/19 20:15 02/18/19 05:05 02/18/19 08:11 Bedside Glucose 123 138 87 White Blood Count 5.2 Red Blood Count 3.37 L Hemoglobin 10.2 L Hematocrit 30.7 L Mean Corpuscular Volume 91.1 Mean Corpuscular 30.3 Hemoglobin Mean Corpuscular 33.2 Hemoglobin Concent Red Cell Distribution 13.0 Width Platelet Count 205 Mean Platelet Volume 9.6 Immature Granulocytes % 1.000 H Neutrophils % 60.3 Lymphocytes % 27.2 Monocytes % 8.6 Eosinophils % 2.5 Basophils % 0.4 Nucleated Red Blood 0.0 Cells % Immature Granulocytes # 0.050 H Neutrophils # 3.2 Lymphocytes # 1.4 Monocytes # 0.5 Eosinophils # 0.1 Basophils # 0.0 Nucleated Red Blood 0.0 Cells # Sodium Level 139 Potassium Level 4.0 Chloride Level 106 Carbon Dioxide Level 26 Anion Gap 7 Blood Urea Nitrogen 15 Creatinine 0.58 Est Glomerular Filtrat Rate mL/min Glucose Level 77 Calcium Level 8.5 Test 02/18/19 12:37 Bedside Glucose 119 Medications Medication Current Medications IV Flush (NS 3 ml) 3 ml PER PROTOCOL IV ; Start 02/11/19 at 22:30 Ondansetron HCl (Zofran Inj) 4 mg Q6H PRN IV NAUSEA/VOMITING; Start 02/11/19 at 22:30 Aspirin (Aspirin) 81 mg DAILY PO Last administered on 02/18/19 09:11; Admin Dose 81 MG; Start 02/12/19 at 09:00 Acetaminophen (Tylenol Supp) 650 mg Q6H PRN [place] .PAIN 1-3 OR TEMP; Start 02/11/19 at 22:30 Enoxaparin Sodium (Lovenox) 40 mg DAILY SC Last administered on 02/18/19 09:25; Admin Dose 40 MG; Start 02/12/19 at 09:00 Albuterol/ Ipratropium (Duoneb) 3 ml Q2H RESP THERAPY PRN HHN SHORTNESS OF BREATH; Start 02/11/19 at 22:30 Ammonium Lactate (Lac-Hydrin 12% Lotion) 1 applic DAILY TOP Last administered on 02/18/19 09:26; Admin Dose 1 APPLIC; Start 02/12/19 at 15:00 Carbidopa/Levodopa (Sinemet Cr (50/ 200)) 1 tab QID PO Last administered on 02/18/19 13:52; Admin Dose 1 TAB; Start 02/12/19 at 17:00 Ergocalciferol (Drisdol) 50,000 unit Q7D PO ; Start 02/12/19 at 15:00 Solifenacin (Vesicare) 10 mg DAILY PO Last administered on 02/18/19 09:12; Admin Dose 10 MG; Start 02/12/19 at 15:00 Fish Oil (Fish Oil) 1,000 mg DAILY PO Last administered on 02/18/19 09:12; Admin Dose 1,000 MG; Start 02/13/19 at 09:00 Senna (Senokot) 1 tab DAILY PO Last administered on 02/18/19 09:12; Admin Dose 1 TAB; Start 02/13/19 at 09:00 Miscellaneous Information 1 ea NOTE XX ; Start 02/12/19 at 15:00 Glucose (Glutose) 15 gm Q15M PRN PO DECREASED GLUCOSE; Start 02/12/19 at 15:00 Glucose (Glutose) 22.5 gm Q15M PRN PO DECREASED GLUCOSE; Start 02/12/19 at 15:00 Dextrose (D50w Syringe) 25 ml Q15M PRN IV DECREASED GLUCOSE; Start 02/12/19 at 15:00 Dextrose (D50w Syringe) 50 ml Q15M PRN IV DECREASED GLUCOSE; Start 02/12/19 at 15:00 Glucagon (Glucagen) 1 mg Q15M PRN IM DECREASED GLUCOSE; Start 02/12/19 at 15:00 Glucose (Glutose) 15 gm Q15M PRN BUCCAL DECREASED GLUCOSE; Start 02/12/19 at 15:00 Amantadine HCl (Symmetrel) 100 mg DAILY PO Last administered on 02/18/19 09:13; Admin Dose 100 MG; Start 02/12/19 at 17:30 Morphine Sulfate (morphine) 2 mg Q4H PRN IV SEVERE PAIN LEVEL 7-10 Last administered on 02/14/19at 14:34; Admin Dose 2 MG; Start 02/14/19 at 14:30 Sertraline HCl (Zoloft) 50 mg HS PO Last administered on 02/17/19 20:17; Admin Dose 50 MG; Start 02/14/19 at 21:00 Quetiapine Fumarate (Seroquel) 25 mg BID PO Last administered on 02/18/19 09:13; Admin Dose 25 MG; Start 02/14/19 at 21:00 Metformin HCl (Glucophage) 500 mg BID WITH MEALS PO Last administered on 02/18/19 09:12; Admin Dose 500 MG; Start 02/16/19 at 18:00 Diagnostic Test (Pha) (Accu-Chek) 1 ea AC MEALS AND BEDTIME XX Last administered on 02/17/19 20:17; Admin Dose 1 EA; Start 02/16/19 at 17:30 Lansoprazole (Prevacid) 30 mg DAILY@06 PO Last administered on 8/5/19at 05:40; Admin Dose 30 MG; Start 02/17/19 at 06:00 LAUREN RUSSELL NP Feb 18, 2019 15:39
[2019-02-18 20:04] VITALS: BP 114/62; PULSE 77; RESP 19
[2019-02-18] MEDS: SERTRALINE 50 MG TAB PO SCH (20:22)
[2019-02-19 01:25] VITALS: BP 131/68; PULSE 81; RESP 18
[2019-02-19] MEDS: LANSOPRAZOLE 30 MG CAP PO SCH (05:31)
[2019-02-19] MEDS: ACCU-CHEK XX SCH ×4 (07:00→20:33)
[2019-02-19 07:51] VITALS: BP 131/69; PULSE 66; RESP 18
[2019-02-19] MEDS: SOLIFENACIN 5 MG TAB PO SCH (09:24)
[2019-02-19] MEDS: AMANTADINE 100 MG/10 ML POSYR PO SCH (09:24)
[2019-02-19] MEDS: QUETIAPINE 25 MG TAB PO SCH ×2 (09:25→20:29)
[2019-02-19] MEDS: ASPIRIN 81 MG TAB PO SCH (09:25)
[2019-02-19] MEDS: SENNA TAB PO SCH (09:25)
[2019-02-19] MEDS: AMMONIUM LACTATE 12% 225 GM LOT TOP SCH (09:25)
[2019-02-19] MEDS: BALSAM PERU/CASTOR OIL 60 GM TUBE TOP SCH (09:25)
[2019-02-19] MEDS: metFORMIN 500 MG TAB PO SCH ×2 (09:25→18:12)
[2019-02-19] MEDS: FISH OIL 1,000 MG CAP PO SCH (09:25)
[2019-02-19] MEDS: ENOXAPARIN 40 MG/0.4 ML SYG SC SCH (09:28)
[2019-02-19] MEDS: CARBIDOPA/LEVODOPA 50-200 (CR) TAB PO SCH ×4 (10:19→20:29)
--- NOTE | 2019-02-19 13:32 | PN ---
Date/Time of Note Date/Time of Note DATE: 02/19/19 TIME: 13:30 Assessment/Plan VTE Prophylaxis Risk score (from Ns)>0 risk: 7 SCD applied (from Nsg): Yes Pharmacological prophylaxis: LMWH Lines/Catheters IV Catheter Type (from Nrs): Peripheral IV Urinary Cath still in place: No Assessment/Plan Hospital Course SUBJECTIVE: Continues to remain confused. OBJECTIVE: Physical Exam General: Adequately build 83 year-old female lying in bed in no apparent distress. HEENT: Normocephalic, atraumatic. Eyes: Anicteric sclerae, conjunctivae clear. ENT: Nasal septum midline, oral mucosa moist. Neck supple, no JVD noticed. Respiratory: Bilaterally diminished breath sounds. No use of accessory muscles of respiration. No adventitious breath sounds. Cardiovascular: S1, S2 heard. Regular rate and rhythm. Abdomen: Soft, nontender, and nondistended. Bowel sounds positive in all 4 quadrants. Genitourinary: Deferred. Extremities: No cyanosis, no clubbing, no edema. Neurologic: The patient is awake and alert. Labs & Vitals per chart ASSESSMENT & PLAN 83-year-old female with comorbidities including hypertension, dyslipidemia, diabetes, CVA, Parkinson's disease, and dementia who was brought in by rescue ambulance from home because of inability to speak, who was admitted to inpatient setting for further treatment and evaluation. 1. Acute encephalopathy w/ aphasia. Etiology unclear. Most probably toxic metabolic in origin. Imaging studies negative for any acute stroke. Being followed by neurology. Continue PT, ST. 2. Parkinson's disease. Continue antiparkinsonian medications. 3. Diabetes mellitus. Continue biguanides. Hemoglobin A1c 5.4. 4. Hypertension. Continue antihypertensives. 5. Normocytic, normochromic anemia. Monitor H&H closely. 6. 1. 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 Management as outpatient. 7. Fluids, electrolytes, and nutrition. Pured diet. 8. DVT prophylaxis. Subcutaneous Lovenox. 9. Plan. Continue inpatient monitoring. [facility] home with home health upon discharge. Called the patient's son Pierre @ [phone]. As per Pierre he is looking for a SNF. The patient was seen in collaboration with Dr. Fabian. Result Diagram: 02/18/19 0505 02/18/19 0505 Results 24hrs Laboratory Tests Test 02/18/19 17:28 02/18/19 20:21 02/19/19 08:11 02/19/19 13:02 Bedside Glucose 97 101 96 109 Exam/Review of Systems Exam Vitals Vital Signs Date Temp Pulse Resp B/P (MAP) Pulse Ox O2 O2 Flow FiO2 Time Delivery Rate 02/19/19 98.5 66 18 131/69 95 07:51 (89) Intake and Output 02/18/19 02/18/19 02/19/19 1515:00 23:00 07:00 IntakeIntake Total 615 ml 240 ml BalanceBalance 615 ml 240 ml Results Results 24hrs Laboratory Tests Test 02/18/19 17:28 02/18/19 20:21 02/19/19 08:11 02/19/19 13:02 Bedside Glucose 97 101 96 109 Medications Medication Current Medications IV Flush (NS 3 ml) 3 ml PER PROTOCOL IV ; Start 02/11/19 at 22:30 Ondansetron HCl (Zofran Inj) 4 mg Q6H PRN IV NAUSEA/VOMITING; Start 02/11/19 at 22:30 Aspirin (Aspirin) 81 mg DAILY PO Last administered on 02/19/19at 09:25; Admin Dose 81 MG; Start 02/12/19 at 09:00 Acetaminophen (Tylenol Supp) 650 mg Q6H PRN [place] .PAIN 1-3 OR TEMP; Start 02/11/19 at 22:30 Enoxaparin Sodium (Lovenox) 40 mg DAILY SC Last administered on 02/19/19at 09:28; Admin Dose 40 MG; Start 02/12/19 at 09:00 Albuterol/ Ipratropium (Duoneb) 3 ml Q2H RESP THERAPY PRN HHN SHORTNESS OF BREATH; Start 02/11/19 at 22:30 Ammonium Lactate (Lac-Hydrin 12% Lotion) 1 applic DAILY TOP Last administered on 02/19/19at 09:25; Admin Dose 1 APPLIC; Start 02/12/19 at 15:00 Carbidopa/Levodopa (Sinemet Cr (50/ 200)) 1 tab QID PO Last administered on 02/19/19at 10:19; Admin Dose 1 TAB; Start 02/12/19 at 17:00 Ergocalciferol (Drisdol) 50,000 unit Q7D PO ; Start 02/12/19 at 15:00 Solifenacin (Vesicare) 10 mg DAILY PO Last administered on 02/19/19 09:24; Admin Dose 10 MG; Start 02/12/19 at 15:00 Fish Oil (Fish Oil) 1,000 mg DAILY PO Last administered on 02/19/19 09:25; Admin Dose 1,000 MG; Start 02/13/19 at 09:00 Senna (Senokot) 1 tab DAILY PO Last administered on 02/19/19 09:25; Admin Dose 1 TAB; Start 02/13/19 at 09:00 Miscellaneous Information 1 ea NOTE XX ; Start 02/12/19 at 15:00 Glucose (Glutose) 15 gm Q15M PRN PO DECREASED GLUCOSE; Start 02/12/19 at 15:00 Glucose (Glutose) 22.5 gm Q15M PRN PO DECREASED GLUCOSE; Start 02/12/19 at 15:00 Dextrose (D50w Syringe) 25 ml Q15M PRN IV DECREASED GLUCOSE; Start 02/12/19 at 15:00 Dextrose (D50w Syringe) 50 ml Q15M PRN IV DECREASED GLUCOSE; Start 02/12/19 at 15:00 Glucagon (Glucagen) 1 mg Q15M PRN IM DECREASED GLUCOSE; Start 02/12/19 at 15:00 Glucose (Glutose) 15 gm Q15M PRN BUCCAL DECREASED GLUCOSE; Start 02/12/19 at 15:00 Amantadine HCl (Symmetrel) 100 mg DAILY PO Last administered on 02/19/19 09:24; Admin Dose 100 MG; Start 02/12/19 at 17:30 Morphine Sulfate (morphine) 2 mg Q4H PRN IV SEVERE PAIN LEVEL 7-10 Last administered on 02/14/19 14:34; Admin Dose 2 MG; Start 02/14/19 at 14:30 Sertraline HCl (Zoloft) 50 mg HS PO Last administered on 02/18/19 20:22; Admin Dose 50 MG; Start 02/14/19 at 21:00 Metformin HCl (Glucophage) 500 mg BID WITH MEALS PO Last administered on 02/19/19 09:25; Admin Dose 500 MG; Start 02/16/19 at 18:00 Diagnostic Test (Pha) (Accu-Chek) 1 ea AC MEALS AND BEDTIME XX Last administered on 02/19/19at 11:30; Admin Dose 1 EA; Start 02/16/19 at 17:30 Lansoprazole (Prevacid) 30 mg DAILY@06 PO Last administered on 02/19/19at 05:31; Admin Dose 30 MG; Start 02/17/19 at 06:00 Quetiapine Fumarate (Seroquel) 25 mg AM PO ; Start 02/20/19 at 09:00 Quetiapine Fumarate (Seroquel) 50 mg HS PO ; Start 02/19/19 at 21:00 LAUREN RUSSELL NP Feb 19, 2019 13:32
[2019-02-19 14:20] VITALS: BP 118/75; PULSE 88; RESP 18
[2019-02-19] MEDS: ERGOCALCIFEROL 50,000 UNIT CAP PO SCH (16:56)
[2019-02-19 20:00] VITALS: BP 146/69; PULSE 91; RESP 18
[2019-02-19] MEDS: SERTRALINE 50 MG TAB PO SCH (20:29)
[2019-02-20 01:16] VITALS: BP 98/54; PULSE 75; RESP 17
[2019-02-20] MEDS: LANSOPRAZOLE 30 MG CAP PO SCH (05:41)
[2019-02-20] MEDS: ACCU-CHEK XX SCH ×4 (07:00→20:26)
[2019-02-20 07:54] VITALS: BP 152/66; PULSE 80; RESP 17
[2019-02-20] MEDS: AMMONIUM LACTATE 12% 225 GM LOT TOP SCH (08:31)
[2019-02-20] MEDS: BALSAM PERU/CASTOR OIL 60 GM TUBE TOP SCH (08:31)
[2019-02-20] MEDS: metFORMIN 500 MG TAB PO SCH ×2 (08:31→17:23)
[2019-02-20] MEDS: CARBIDOPA/LEVODOPA 50-200 (CR) TAB PO SCH ×4 (08:32→20:22)
[2019-02-20] MEDS: FISH OIL 1,000 MG CAP PO SCH (08:32)
[2019-02-20] MEDS: SOLIFENACIN 5 MG TAB PO SCH (08:32)
[2019-02-20] MEDS: SENNA TAB PO SCH (08:32)
[2019-02-20] MEDS: ASPIRIN 81 MG TAB PO SCH (08:32)
[2019-02-20] MEDS: AMANTADINE 100 MG/10 ML POSYR PO SCH (08:35)
[2019-02-20] MEDS: ENOXAPARIN 40 MG/0.4 ML SYG SC SCH (08:51)
[2019-02-20] MEDS ORDERED: QUETIAPINE 25 MG TAB PO SCH (09:00)
[2019-02-20 14:00] VITALS: BP_SYST 130; BP_SYST 144; BP_DIAS 73; BP_DIAS 96; PULSE 93; PULSE 95; RESP 16
[2019-02-20] MEDS ORDERED: COLLAGENASE 5 GM (UD JAR) TOP SCH (14:00)
--- NOTE | 2019-02-20 14:30 | PN ---
Date/Time of Note Date/Time of Note DATE: 02/20/19 TIME: 14:30 Assessment/Plan VTE Prophylaxis Risk score (from Ns)>0 risk: 5 SCD applied (from Ns): Yes Pharmacological prophylaxis: LMWH Lines/Catheters IV Catheter Type (from [facility]): [place] Urinary Cath still in place: No Assessment/Plan Hospital Course SUBJECTIVE: Continues to remain confused. OBJECTIVE: Physical Exam General: Adequately build 83 year-old female lying in bed in no apparent distress. HEENT: Normocephalic, atraumatic. Eyes: Anicteric sclerae, conjunctivae clear. ENT: Nasal septum midline, oral mucosa moist. Neck supple, no JVD noticed. Respiratory: Bilaterally diminished breath sounds. No use of accessory muscles of respiration. No adventitious breath sounds. Cardiovascular: S1, S2 heard. Regular rate and rhythm. Abdomen: Soft, nontender, and nondistended. Bowel sounds positive in all 4 quadrants. Genitourinary: Deferred. Extremities: No cyanosis, no clubbing, no edema. Neurologic: The patient is awake and alert. Labs & Vitals per chart ASSESSMENT & PLAN 83-year-old female with comorbidities including hypertension, dyslipidemia, diabetes, CVA, Parkinson's disease, and dementia who was brought in by rescue ambulance from home because of inability to speak, who was admitted to inpatient setting for further treatment and evaluation. 1. Acute encephalopathy w/ aphasia. Etiology unclear. Most probably toxic metabolic in origin. Imaging studies negative for any acute stroke. Being followed by neurology. Continue PT, ST. 2. Parkinson's disease. Continue antiparkinsonian medications. 3. Diabetes mellitus. Continue biguanides. Hemoglobin A1c 5.4. 4. Hypertension. Continue antihypertensives. 5. Normocytic, normochromic anemia. Monitor H&H closely. 6. 1. 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 Management as outpatient. 7. Fluids, electrolytes, and nutrition. Pured diet. 8. DVT prophylaxis. Subcutaneous Lovenox. 9. Plan. Continue inpatient monitoring. Patient's family has found a SNF of their choice and will discharge the patient once everything is arranged. The patient was seen in collaboration with Dr. Fabian. Result Diagram: 02/18/19 0505 02/18/19 0505 Results 24hrs Laboratory Tests Test 02/19/19 17:05 02/19/19 20:32 02/20/19 08:30 02/20/19 12:13 Bedside Glucose 102 128 89 124 Exam/Review of Systems Exam Vitals Vital Signs Date Temp Pulse Resp B/P (MAP) Pulse Ox O2 O2 Flow FiO2 Time Delivery Rate 02/20/19 98.0 80 17 152/66 100 Room Air 07:54 (94) Intake and Output 02/19/19 02/19/19 02/20/19 1515:00 23:00 07:00 IntakeIntake Total 300 ml BalanceBalance 300 ml Results Results 24hrs Laboratory Tests Test 02/19/19 17:05 02/19/19 20:32 02/20/19 08:30 02/20/19 12:13 Bedside Glucose 102 128 89 124 Medications Medication Current Medications IV Flush (NS 3 ml) 3 ml PER PROTOCOL IV ; Start 02/11/19 at 22:30 Ondansetron HCl (Zofran Inj) 4 mg Q6H PRN IV NAUSEA/VOMITING; Start 02/11/19 at 22:30 Aspirin (Aspirin) 81 mg DAILY PO Last administered on 02/20/19 08:32; Admin Dose 81 MG; Start 02/12/19 at 09:00 Acetaminophen (Tylenol Supp) 650 mg Q6H PRN [place] .PAIN 1-3 OR TEMP; Start 02/11/19 at 22:30 Enoxaparin Sodium (Lovenox) 40 mg DAILY SC Last administered on 02/20/19at 08:51; Admin Dose 40 MG; Start 02/12/19 at 09:00 Albuterol/ Ipratropium (Duoneb) 3 ml Q2H RESP THERAPY PRN HHN SHORTNESS OF B REATH; Start 02/11/19 at 22:30 Ammonium Lactate (Lac-Hydrin 12% Lotion) 1 applic DAILY TOP Last administered on 02/20/19 08:31; Admin Dose 1 APPLIC; Start 02/12/19 at 15:00 Carbidopa/Levodopa (Sinemet Cr (50/ 200)) 1 tab QID PO Last administered on 02/20/19 12:13; Admin Dose 1 TAB; Start 02/12/19 at 17:00 Ergocalciferol (Drisdol) 50,000 unit Q7D PO Last administered on 02/19/19 16:56; Admin Dose 50,000 UNIT; Start 02/12/19 at 15:00 Solifenacin (Vesicare) 10 mg DAILY PO Last administered on 02/20/19 08:32; Admin Dose 10 MG; Start 02/12/19 at 15:00 Fish Oil (Fish Oil) 1,000 mg DAILY PO Last administered on 02/20/19 08:32; Admin Dose 1,000 MG; Start 02/13/19 at 09:00 Senna (Senokot) 1 tab DAILY PO Last administered on 02/20/19 08:32; Admin Dose 1 TAB; Start 02/13/19 at 09:00 Miscellaneous Information 1 ea NOTE XX ; Start 02/12/19 at 15:00 Glucose (Glutose) 15 gm Q15M PRN PO DECREASED GLUCOSE; Start 02/12/19 at 15:00 Glucose (Glutose) 22.5 gm Q15M PRN PO DECREASED GLUCOSE; Start 02/12/19 at 15:00 Dextrose (D50w Syringe) 25 ml Q15M PRN IV DECREASED GLUCOSE; Start 02/12/19 at 15:00 Dextrose (D50w Syringe) 50 ml Q15M PRN IV DECREASED GLUCOSE; Start 02/12/19 at 15:00 Glucagon (Glucagen) 1 mg Q15M PRN IM DECREASED GLUCOSE; Start 02/12/19 at 15:00 Glucose (Glutose) 15 gm Q15M PRN BUCCAL DECREASED GLUCOSE; Start 02/12/19 at 15:00 Amantadine HCl (Symmetrel) 100 mg DAILY PO Last administered on 02/20/19 08:35; Admin Dose 100 MG; Start 02/12/19 at 17:30 Morphine Sulfate (morphine) 2 mg Q4H PRN IV SEVERE PAIN LEVEL 7-10 Last administered on 02/14/19 14:34; Admin Dose 2 MG; Start 02/14/19 at 14:30 Sertraline HCl (Zoloft) 50 mg HS PO Last administered on 02/19/19 20:29; Admin Dose 50 MG; Start 02/14/19 at 21:00 Metformin HCl (Glucophage) 500 mg BID WITH MEALS PO Last administered on 02/20/19 08:31; Admin Dose 500 MG; Start 02/16/19 at 18:00 Diagnostic Test (Pha) (Accu-Chek) 1 ea AC MEALS AND BEDTIME XX Last administered on 02/19/19at 17:05; Admin Dose 1 EA; Start 02/16/19 at 17:30 Lansoprazole (Prevacid) 30 mg DAILY@06 PO Last administered on 02/20/19at 05:41; Admin Dose 30 MG; Start 02/17/19 at 06:00 Quetiapine Fumarate (Seroquel) 25 mg AM PO Last administered on 02/20/19at 08:32; Admin Dose 25 MG; Start 02/20/19 at 09:00 Quetiapine Fumarate (Seroquel) 50 mg HS PO Last administered on 02/19/19at 20:29; Admin Dose 50 MG; Start 02/19/19 at 21:00 Collagenase (Santyl) 1 applic DAILY TOP ; Start 02/20/19 at 14:00 LAUREN RUSSELL NP Feb 20, 2019 14:30
--- NOTE | 2019-02-20 15:40 | DS ---
Date/Time of Note Date/Time of Note DATE: 02/20/19 TIME: 15:37 Discharge Summary Admission/Discharge Info Admit Date/Time Feb 11, 2019 at 21:32 Discharge Date/Time Discharge Diagnosis 1. Acute encephalopathy in a patient with underlying dementia. 2. Parkinson's disease. 3. Diabetes mellitus. Hemoglobin A1c 5.4. 4. Hypertension. 5. Normocytic, normochromic anemia. 6. 1. 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 Patient Condition: Stable Consults 1. Odalys Edwards MD, Neurology. Procedures Brain MRI IMPRESSION: 1. Limited examination secondary to motion artifact. 2. Otherwise, no definite evidence of acute intracranial pathology. 3. Moderate volume loss with mild to moderate chronic microvascular ischemic changes. 2D Echocardiogram Conclusions: Normal left ventricular systolic function. Normal left ventricular cavity size. Sigmoid septum. Ejection fraction is visually estimated at 60 %. Tissue Doppler/Mitral Doppler indices are consistent with impaired relaxation (Stage I diastolic dysfunction). The left atrium is normal in size. Mild mitral leaflet calcification. Mild mitral annular calcification. Mild mitral valve regurgitation. Mild aortic stenosis. Aortic cusps appear moderately calcified. Trace aortic valve regurgitation. Normal appearance of the tricuspid valve. The estimated Peak RVSP is 28 mmHg. There is mild tricuspid regurgitation. Neck CTA IMPRESSION: 1. 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 2. Otherwise negative CT angiogram of the neck and head. Hx of Present Illness This is a 83-year-old female with comorbidities including hypertension, dyslipidemia, diabetes, CVA, Parkinson's disease, and dementia who was brought in by rescue ambulance from home because of inability to speak, who was admitted to inpatient setting for further treatment and evaluation. Hospital Course The patient was admitted to inpatient telemetry setting. The patient was evaluated by the telemetry neurologist who recommended further evaluation including studies. The patient underwent a brain CT scan that was negative for any acute findings. Brain MRI was negative for any acute stroke. 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 The patient was continued on daily aspirin for secondary stroke prevention. The patient was also started on antilipemic therapy with fish oil. The patient was evaluated by physical therapy, and speech therapy. The patient was maintained on a pured diet with thin liquids. Patient was maintained on aspiration precautions. The patient had a multiple physical therapy sessions. The etiology of the patient's acute encephalopathy remains unclear. The patient was ruled out for any underlying acute stroke. The patient was not apparently taking her antiparkinsonian medications for a few days prior to this hospitalization. The patient was restarted on the her antiparkinsonian medications including amantadine and Sinemet. The patient was also resumed on Seroquel with improvement in the patient's mental status. The patient's other chronic problems include diabetes mellitus. The patient's hemoglobin A1c was 5.4. The patient was maintained on metformin. She has underlying hypertension and the patient was maintained on antihypertensives for the same. The patient was noticed to have normocytic, normochromic anemia. This could be anemia chronic disease. The patient's H&H remained stable. The patient has underlying dementia and lives at home with family. After this hospitalization, it was concluded that the patient needs more physical therapy before she can be safely discharged home. Therefore, a clinical decision was made to discharge this patient to a rehabilitation unit. The patient was declined by the inpatient acute rehabilitation unit at [facility]. Therefore, the patient will be discharged to [facility] for further rehabilitation before the patient can be discharged home. At this time I would like to thank all the consultants for seeing the patient and providing clinical recommendations. The patient was seen in collaboration with Dr. Fabian. Home Meds Active Scripts Lansoprazole* (Lansoprazole*) 30 Mg Capsule., 30 MG PO DAILY@06, #30 Prov:LAUREN RUSSELL NP 02/20/19 Sertraline Hcl* (Sertraline Hcl*) 50 Mg Tablet, 50 MG PO HS, #30 TAB Prov:LAUREN RUSSELL NP 02/20/19 Quetiapine Fumarate* (Quetiapine Fumarate*) 25 Mg Tablet, 50 MG PO HS, #30 TAB Prov:LAUREN RUSSELL NP 02/20/19 Quetiapine Fumarate* (Quetiapine Fumarate*) 25 Mg Tablet, 25 MG PO AM, #30 TAB Prov:LAUREN RUSSELL NP 02/20/19 Reported Medications Hydrocortisone (Neosporin) 1% - 28 Gm Cream..g., 1 APPLIC TOP DAILY, #1 TUB 04/28/16 Ammonium Lactate* (Lac-Hydrin* 12% (225gm)) 1 Applic Lotion, 1 APPLIC TOP DAILY, BOTTLE 04/28/16 Metoprolol Tartrate* (Lopressor*) 25 Mg Tablet, 25 MG PO DAILY, #60 TAB 04/28/16 Solifenacin* (Vesicare*) 10 Mg Tablet, 10 MG PO DAILY, TAB 04/28/16 Ergocalciferol* (Drisdol* (Vitamin D2)) 50,000 Unit Capsule, [address] UNIT PO Q7D, CAP 04/28/16 Sennosides (Laxative) 25 Mg Tablet, 25 MG PO DAILY, TAB 04/28/16 Romeo-3 Fatty Acids/Fish Oil (OMEGA-3 1,000 MG SOFTGEL) 1 Each Capsule, 1 EACH PO DAILY, CAP 04/28/16 Carbidopa-Levodopa* (Sinemet CR*) 50-200 Mg Tabsr, 1 TAB PO QID, #6 TAB 09/12/14 Metformin* (Glucophage*) 850 Mg Tablet, 850 MG PO BID WITH MEALS, TAB 09/10/14 Discontinued Reported Medications Amoxicillin/Potassium Clav (Amox-Clav 875-125 mg Tablet) 875-125 mg Tab, 1 TAB PO BID, #20 TAB 04/28/16 Cyclobenzaprine Hcl* (Cyclobenzaprine Hcl*) 5 Mg Tablet, 5 MG PO DAILY, #60 TAB 04/28/16 Ropinirole Hcl* (Ropinirole Hcl*) 1 Mg Tablet, 1 MG PO BID, TAB 04/28/16 Amitriptyline Hcl* (Amitriptyline Hcl*) 50 Mg Tablet, 50 MG PO QHS, #30 TAB 04/28/16 Esomeprazole Mag Trihydrate (Nexium) 40 Mg Capsule.dr, 40 MG PO DAILY, #30 CAP 04/28/16 Follow-up Plan The patient being transferred to a assisted facility for further rehabilitation. Primary Care Provider Not On Staff Doctor Time spent on discharge: > 30 minutes Pending Labs Laboratory Tests Test 02/19/19 17:05 02/19/19 20:32 02/20/19 08:30 02/20/19 12:13 Bedside 102 128 89 124 Glucose mg/dL (70-220) mg/dL (70-220) mg/dL (70-220) mg/dL (70-220) LAUREN RUSSELL NP Feb 20, 2019 15:39
[2019-02-20 19:55] VITALS: BP 98/54; PULSE 85; RESP 18
[2019-02-20] MEDS: QUETIAPINE 25 MG TAB PO SCH (20:22)
[2019-02-20] MEDS: SERTRALINE 50 MG TAB PO SCH (20:22)
== END 2019-02-20 22:00 | disposition home or self-care (01) | DRG 71 ==
LOC: E/R 19:01 → TEL 21:32 → 2NE 02-14 02:05
PROVIDERS: ADMIT Internal Medicine; ATTEND Internal Medicine
DX: G93.41 Metabolic encephalopathy (principal); R47.01 Aphasia; E86.0 Dehydration; E87.5 Hyperkalemia; D44.6 Neoplasm of uncertain behavior of carotid body; G20 Parkinson's disease; D63.8 Anemia in other chronic diseases classified elsewhere; F02.80 Dementia in other diseases classified elsewhere, unspecified severity, without behavioral disturbance, psychotic disturbance, mood disturbance, and anxiety; E11.9 Type 2 diabetes mellitus without complications; E78.5 Hyperlipidemia, unspecified; I10 Essential (primary) hypertension; Z86.73 Personal history of transient ischemic attack (TIA), and cerebral infarction without residual deficits; Z79.84 Long term (current) use of oral hypoglycemic drugs
CPT/HCPCS: 36415; 70450; 70496; 70498; 70551; 71045; 80048; 80053; 80061; 80307; 81003; 82140; 82550; 82553; 82607; 82962; 83036; 83735; 84439; 84443; 84484; 85025; 85610; 85730; 92523; 92526; 92610; 93005; 93306; 97110; 97162; 97530; A4310; G9033; J1650; J1815; J2270; J3475; J3480; J7040; J7042